=== PATIENT | female | born 1975 | race Hispanic/Latino ===

== ENCOUNTER 2019-09-21 14:42 | Outpatient (CLI) | payer OTHER, SELFPAY ==
[2019-09-21 15:30] LABS: Basophils Percent Auto 0.5 % (0.2-1.2); Eosinophils Percent Auto 0.7 % (0-4.4); Hematocrit 38.4 % (37.0-47.0); Hemoglobin 12.7 g/dL (12.0-15.0); Immature Granulocyte Absolute 0.01 K/mm3 (0.00-0.031); Immature Granulocyte Percent A 0.2 % (0-0.5); Lymphocytes Absolute Auto 1.05 K/mm3 (0.9-3.2); Lymphocytes Percent Auto 25.6 % (18.3-44.2); Mean Corpuscular HGB Conc 33.1 g/dl (32-36); Mean Corpuscular Hemoglobin 31.3 pg (26-34); Mean Corpuscular Volume 94.6 fl (80-100); Mean Platelet Volume 10.3 fl (7.4-10.4); Monocytes Absolute Auto 0.2 K/mm3 (0.1-0.6); Monocytes Percent Auto 4.9 % (2.6-8.5); Neutrophils Absolute Auto 2.8 K/mm3 (1.3-6.7); Neutrophils Percent Auto 68.1 % (45.5-73.1); Platelet Count Result 270 k/mm3 (150-375); Red Blood Count 4.06 M/mm3 (4.2-5.4); Red Cell Distribution Width 11.9 % (11.5-14.5); White Blood Count 4.1 K/mm3 (4.5-10.0)
[2019-09-26 22:11] LABS: Aspergillus Fumigatus K/UL <0.10 (<0.10); Conventional Class 0 (0)
[2019-09-27 20:05] LABS: Aspergillus fumigatus (m3) IgG 16.1 mcg/mL (<2.0)
== END 2019-09-21 14:43 | disposition home or self-care (01) ==
PROVIDERS: PCP Physician Assistant; Visit Provider Nurse Practitioner Family
DX: J45.909 Unspecified asthma, uncomplicated (principal)
CPT/HCPCS: 36415; 82785; 85025; 86001; 86003

== ENCOUNTER 2019-10-03 15:35 | Outpatient (CLI) | payer OTHER, SELFPAY ==
--- NOTE | ~2019-10-03 | CT_ITS ---
EXAMINATION: CTA chest PE protocol EXAM DATE: 10/03/2019 16:23 INDICATION: Shortness of breath on exertion. TECHNIQUE: Spiral CTA of the chest (pulmonary arteries) was performed with 100 cc Omnipaque 350 intr avenous contrast injection. Images were acquired during the pulmonary arterial phase. Coronal maxi mum intensity projection 3D-reconstructions were created by the technologist on dedicated workstation . Axial, coronal and sagittal reformatted images were reviewed. The dose-length product (DLP) for t his examination was 180.42 mGy-cm. The exposure was tailored according to patient size (auto mA exp osure control), and iterative reconstruction (ASIR) was used as additional dose reduction technique. There is no prior study for comparison. FINDINGS: Pulmonary arteries are well opacified and without intraluminal filling defects. No thora cic aortic dissection. Biapical nodular densities most likely scarring, stable. No new or suspicious pulmonary nodules. There are no pleural or pericardial effusions. Tracheobronchial tree is patent. There is no mediastinal, hilar or axillary lymphadenopathy. There is no pneumothorax. Heart no rmal in size. No evidence of coronary arterial calcification. Upper abdomen is unremarkable. The re is thoracic spondylosis without osteoblastic or osteolytic lesions identified. IMPRESSION: 1. Biapical scarring unchanged. 2. No pulmonary emboli. Reviewed, dictated and finalized at location A. TY AGRICULTURAL AGENT
== END 2019-10-03 15:36 | disposition home or self-care (01) ==
PROVIDERS: PCP Physician Assistant; Visit Provider Internal Medicine Critical Care Medicine
DX: R06.02 Shortness of breath (principal)
CPT/HCPCS: 71275; Q9967

== ENCOUNTER 2020-02-29 10:20 | Outpatient (CLI) | payer OTHER, SELFPAY ==
--- NOTE | ~2020-02-29 | MM_ITS ---
EXAMINATION: MM screening yamile BI w shira HISTORY: Screening mammogram TECHNIQUE: Craniocaudal and mediolateral oblique 3-D tomosynthesis images were obtained and synthetic 2-D images were generated. CAD analysis was submitted and interpreted. COMPARISON: 10/30/2016 BREAST PARENCHYMAL COMPOSITION: The breasts are heterogeneously dense, which may obscure small masses . FINDINGS: Scattered benign-appearing calcifications are present. There is no evidence of suspicious m ass, calcification, or architectural distortion to suggest malignancy in either breast. There has bee n no suspicious interval change. IMPRESSION: 1. No mammographic evidence of malignancy. 2. Recommend routine screening mammography in one year. BI-RADS Category 2: Benign finding(s). Reviewed, dictated and finalized at location B.
== END 2020-02-29 10:21 | disposition home or self-care (01) ==
LOC: CHSIMG 10:22
PROVIDERS: PCP Physician Assistant; Visit Provider Physician Assistant
DX: Z12.31 Encounter for screening mammogram for malignant neoplasm of breast (principal)
CPT/HCPCS: 77063; 77067

== ENCOUNTER 2020-06-22 15:07 | Outpatient (CLI) | payer OTHER, SELFPAY ==
[2020-06-24 22:23] LABS: SARS-CoV-2 RNA PCR Positive
== END 2020-06-22 15:08 | disposition home or self-care (01) ==
PROVIDERS: PCP Physician Assistant; Visit Provider Physician Assistant
DX: U07.1 COVID-19 (principal)
CPT/HCPCS: 87635; C9803; U0003

== ENCOUNTER 2021-06-13 07:52 | Outpatient (CLI) | payer OTHER, SELFPAY ==
--- NOTE | ~2021-06-13 | MM_ITS ---
EXAMINATION: MM screening yamile BI w shira HISTORY: Screening mammogram TECHNIQUE: Craniocaudal and mediolateral oblique 3-D tomosynthesis images were obtained and synthetic 2-D images were generated. CAD analysis was submitted and interpreted. COMPARISON: 02/29/2020, 10/30/2016 bilateral screening mammogram examinations BREAST PARENCHYMAL COMPOSITION: There are scattered areas of fibroglandular density. FINDINGS: There is no evidence of suspicious mass, calcification, or architectural distortion to sugg est malignancy in either breast. There has been no suspicious interval change. IMPRESSION: 1. No mammographic evidence of malignancy. 2. Recommend routine screening mammography in one year. BI-RADS Category 1: Negative Reviewed, dictated and finalized at location A. APEUTIC RECREATION SPECIALIST
== END 2021-06-13 07:53 | disposition home or self-care (01) ==
LOC: CHSIMG 07:56
PROVIDERS: PCP Physician Assistant; Visit Provider Physician Assistant
DX: Z12.31 Encounter for screening mammogram for malignant neoplasm of breast (principal)
CPT/HCPCS: 77063; 77067

== ENCOUNTER 2021-08-05 11:10 | Outpatient (CLI) | payer OTHER, SELFPAY ==
[2021-08-05 13:13] LABS: SARS-CoV-2 RNA PCR Positive (Negative)
== END 2021-08-05 11:11 | disposition home or self-care (01) ==
LOC: CHSLAB 11:12
PROVIDERS: PCP Physician Assistant; Visit Provider Physician Assistant
DX: U07.1 COVID-19 (principal)
CPT/HCPCS: C9803; U0003; U0005

== ENCOUNTER 2021-08-26 16:08 | Outpatient (CLI) | payer OTHER, SELFPAY ==
--- NOTE | ~2021-08-26 | XR_ITS ---
XR chest 2V DATE: 08/26/2021 16:29 INDICATION: Shortness of breath, cough for 3 weeks TECHNIQUE: PA and lateral views COMPARISON: 10/03/2019 CT pulmonary scan FINDINGS: Normal heart size. No hilar or mediastinal enlargement. No pulmonary infiltrate or consolid ation, pleural effusion or pulmonary vascular congestion or pneumothorax. IMPRESSION: Negative chest Reviewed, dictated and finalized at location A. F SORTER IMPRESSION: Negative chest
== END 2021-08-26 16:09 | disposition home or self-care (01) ==
LOC: CHSIMG 16:11
PROVIDERS: PCP Physician Assistant; Visit Provider Nurse Practitioner Family
DX: R06.02 Shortness of breath (principal); R05.9 Cough, unspecified; Z86.16 Personal history of COVID-19
CPT/HCPCS: 71046

== ENCOUNTER 2021-12-15 03:19 | Emergency (ER) | payer OTHER, SELFPAY ==
--- NOTE | ~2021-12-15 | XR_ITS ---
XR elbow LT 2V DATE: 12/15/2021 04:01 INDICATION: Elbow injury TECHNIQUE: AP and lateral views COMPARISON: None FINDINGS: No fracture or dislocation or joint effusion. No periosteal reaction or bone destruction. J oint spaces are preserved. IMPRESSION: Negative Reviewed, dictated and finalized at location A. IMPRESSION: Negative
--- NOTE | ~2021-12-15 | XR_ITS ---
XR shoulder LT min 2V DATE: 12/15/2021 04:02 INDICATION: Left shoulder injury, pain TECHNIQUE: 4 views COMPARISON: None FINDINGS: There is a linear nondisplaced fracture at the inferomedial aspect of the greater tuberosit y of the proximal left humerus. No other fracture or dislocation. No periosteal reaction or bone destruction. IMPRESSION: Nondisplaced linear fracture superior medial aspect of the greater tuberosity of the prox imal left humerus Reviewed, dictated and finalized at location A. IMPRESSION: Nondisplaced linear fracture superior medial aspect of the greater tuberosity of the proximal left humerus
[2021-12-15 03:20] VITALS: BP 123/79; PULSE 109; RESP 22; TEMP 36.2; O2SAT 98
--- NOTE | 2021-12-15 03:43 | ED.UPPEXIN ---
HPI - Extremity Injury (Upper) General Chief Complaint: Extremity Injury, Upper Stated Complaint: PAIN Time Seen by Provider: 12/15/21 03:43 Source: patient Mode of arrival: ambulatory Limitations: no limitations History of Present Illness HPI narrative: this is a 46-year-old female that was outside taking her dog to go to the bathroom and got tangled in his leash and fell forward into her left shoulder and elbow causing pain discomfort with decreased range of motion secondary to pain and swelling. Has some pain level that she rates about an 8/10 with currently no numbness or tingling and has a strong brisk radial pulse on the right. complaint: injury to: left, shoulder and elbow Other injuries: none Handedness: right Place: outdoors Severity: moderate Severity scale (1-10): 8 Relieving factors: immobilization and rest Exacerbating factors: movement of extremity Related Data Allergies Allergy/AdvReac Type Severity Reaction Status Date / Time mold Allergy Difficulty Verified 12/15/21 03:29 Breathing Review of Systems Review of Systems: All systems reviewed & are unremarkable except as noted in HPI and below PMFSH Past Medical History Medical History Asthma Depression History of second hand smoke exposure Lung nodules Rhinitis SOB (shortness of breath) Surgical History Surgical History History of colonoscopy Family History Family History Sibling Family history of malignant neoplasm of uterus Patient's sister is in good health Family history of primary malignant neoplasm of liver Mother Patient's mother is in good health Family history of malignant neoplasm of breast in first degree relative Family history of malignant neoplasm of ovary Other Asthma History of second hand smoke exposure Social History Social History Smoking status: Never smoker Alcohol intake: current Exam Const: General: no acute distress Orientation/consciousness: patient oriented x3 HENMT: Head: normal to inspection Eyes: Conjunctivae: conjunctivae normal Pupils: Equal, round and reactive pupils present Neck: Neck: normal visual inspection and no lymphadenopathy Chest: Chest palpation & inspection: normal inspection of the chest Resp: Effort & Inspection: normal respiratory effort Auscultation: clear to auscultation bilaterally Cardio: Rate: regular rate Rhythm: regular rhythm GI: GI Palp: Yes Soft to palpation Percussion: Yes normal to percussion Back/Spine/Pelvis: Back: no CVA tenderness Skin: General skin exam: normal color Rashes: no rashes Neuro: General: patient oriented x3 and moves all extremities Extrem: Other: Pain with swelling of the left shoulder and elbow with decreased range of motion secondary to pain. Psych: Mental Status: mental status grossly normal Affect: normal affect Course Course Emergency Course: Patient received 60mg IM Toradol and x-rays reviewed with patient. x-rays performed shows a lucency in the left humeral head concerning for a nondisplaced fracture this was reviewed with patient, patient possibly has a rotator cuff injury and recommend patient obtaining an MRI of the left shoulder. Critical Care Time Critical Care Time Critical Care Time: No Discharge Plan Discharge Clinical Impression: Fracture of shoulder Qualifiers: Encounter type: initial encounter Fracture type: closed Laterality: left Qualified Code(s): S42.92XA - Fracture of left shoulder girdle, part unspecified, initial encounter for closed fracture Rotator cuff (capsule) sprain Qualifiers: Encounter type: initial encounter Laterality: left Qualified Code(s): S43.422A - Sprain of left rotator cuff capsule, initial encounter Patient Disposition: Home, Self-Care C
[2021-12-15] MEDS: KETOROLAC (*BKC) 60 MG/2 ML VIAL IM (04:02)
--- NOTE | 2021-12-15 04:36 | PC.NURSE ---
left arm placed in sling.
[2021-12-15 05:01] VITALS: BP 123/73; PULSE 80; RESP 16; TEMP 36.2; O2SAT 99
== END 2021-12-15 05:03 | disposition home or self-care (01) ==
PROVIDERS: Emergency Provider Emergency Medicine; PCP Physician Assistant
DX: S42.92XA Fracture of left shoulder girdle, part unspecified, initial encounter for closed fracture (principal); S43.422A Sprain of left rotator cuff capsule, initial encounter; W18.39XA Other fall on same level, initial encounter
CPT/HCPCS: 73030; 73070; 96372; 99284; A4565; J1885

== ENCOUNTER 2021-12-21 07:59 | Outpatient (CLI) | payer OTHER, SELFPAY ==
--- NOTE | ~2021-12-21 | MR_ITS ---
EXAMINATION: MR shoulder LT wo con DATE: 12/21/2021 09:17 INDICATION: Left shoulder fracture and limited range of motion post fall one week prior TECHNIQUE: Magnetic resonance imaging (MRI) of the left shoulder was performed without intravenous co ntrast. Sequences included axial PD-weighted FS FSE, coronal oblique PD-weighted FS FSE, coronal obli que T2-weighted FS FSE, sagittal PD-weighted FS FSE, and sagittal T1-weighted SE. COMPARISON: Radiographs dated 12/15/2021 FINDINGS: Coracoacromial arch: The acromion undersurface is curved in morphology (type II). The coracoacromial ligament is normal. A cromioclavicular joint is normal. Rotator cuff: There is feathery muscular edema tracking along the posterior aspect of the supraspinatus muscle dalton y consistent with a low-grade muscle strain. Mild supraspinatus tendinopathy without discrete tear. T he infraspinatus, teres minor and subscapularis tendons are normal. Biceps tendon, glenoid labrum and glenohumeral cartilage: Long head of the biceps tendon is normal. There is a superior, anterior to posterior tear of the sendy oid labrum (SLAP tear) extending posteriorly from the 12:00 position to the 11:00 position. [place] ral cartilage is normal. Fluid: Physiologic amount of fluid in the glenohumeral joint and biceps tendon sheath. No loose osteochondr al bodies. Minimal increased fluid in the subacromial/subdeltoid bursa which could be due to mild bur sitis or more likely reactive fluid related to the recent trauma. Bones: Marrow edema along the nondisplaced fracture extending along the superior and middle facets of the gr eater tuberosity. Marrow signal is otherwise normal. No other fractures or pathologic marrow replacin g process. IMPRESSION: 1. Nondisplaced fracture underlying the superior and middle facets of the greater tuberosity. 2. Low-grade supraspinatus muscle strain. 3. Mild supraspinatus tendinopathy without discrete tear which could be related to either the recent trauma or more chronic tendinopathy. 4. Small SLAP tear at the superior glenoid labrum. Reviewed, dictated and finalized at location A. IMPRESSION: 1. Nondisplaced fracture underlying the superior and middle facets of the great er tuberosity. 2. Low-grade supraspinatus muscle strain. 3. Mild supraspinatus tendinopathy without discrete tear which could be related to either the recent trauma or more chronic tendinopathy. 4. Small SLAP tear at the superior glenoid labrum.
== END 2021-12-21 08:00 | disposition home or self-care (01) ==
LOC: CHSIMG 08:01
PROVIDERS: PCP Physician Assistant; Visit Provider Physician Assistant
DX: S46.012A Strain of muscle(s) and tendon(s) of the rotator cuff of left shoulder, initial encounter (principal); S42.255A Nondisplaced fracture of greater tuberosity of left humerus, initial encounter for closed fracture
CPT/HCPCS: 73221

== ENCOUNTER 2022-02-24 09:51 | Outpatient (RCR) | payer OTHER, SELFPAY ==
--- NOTE | 2022-02-24 11:02 | PTOPEVAL ---
Thank you for referring Allyn Cardoza to [facility] [place].? The patient is scheduled to be seen for therapy? 2-3x/week for 12 visits. Please review, sign, date and return this plan of care LOGAN. I agree with and certify that the following plan of care is medically necessary. Referring Physician Date Admitting Provider: Attending Provider: Hao Patricio, PA Referring Provider: *PT Outpatient Evaluation Start: 02/24/22 08:59 Freq: Status: Active Protocol: Document 02/24/22 08:59 [facility] (Rec: 02/24/22 11:00 [facility] [id number]) Therapy Assessment Status Assessment Status Assessment Status Evaluation Outpatient Past Medical History Neurological History Hx Neurological Disorders No Significant History Cardiovascular History Hx Cardiac Disorders No Significant History Respiratory History Hx Asthma Yes Gastrointestinal History Hx Gastrointestinal Disorders No Significant History Genitourinary History Hx Genitourinary Disorders No Significant History Musculoskeletal History Hx Musculoskeletal Disorders No Significant History Hematological History Hx Hematological Disorders No Significant History Endocrine History Hx Endocrine Disorders No Significant History HEENT History Hx HEENT Disorders No Significant History Integumentary History Hx Skin Disorders No Significant History Psychosocial History Hx Psychiatric Disorders No Significant History Pain History History of Any Previous or Ongoing No Significant History Instance of Pain Anesthesia History Hx Anesthesia Reactions No Significant History Evaluation Information Problem Diagnosis L shoulder fracture and rotator cuff tear Onset 12/15/2021 Subjective Information In December, patient injured her L Query Text:As Reported By Patient/ shoulder when she tripped over Family her dog and fell on her L shoulder. She had immediate pain and went to the ER. Xray showed fracture. Later she went to her MD and obtained MRI which shows additional biceps tendon partial tear and RTC partical tear. She was in a splint up until her last visit with her MD and he reports that her bone is now fully healed, therefore, she no longer has any restrictions . They discussed potential for an injection and potential surgery but would
== END 2022-03-18 13:55 | disposition home or self-care (01) ==
LOC: CHSPT 09:51
PROVIDERS: Visit Provider Physician Assistant
DX: S42.255D Nondisplaced fracture of greater tuberosity of left humerus, subsequent encounter for fracture with routine healing (principal); M75.22 Bicipital tendinitis, left shoulder; M75.52 Bursitis of left shoulder
CPT/HCPCS: 97014; 97110; 97140; 97161; G0283

== ENCOUNTER 2022-05-13 11:38 | Emergency (ER) | payer OTHER, SELFPAY ==
--- NOTE | ~2022-05-13 | XR_ITS ---
EXAMINATION: XR chest 1V portable INDICATION: Shortness of breath with cough TECHNIQUE: Portable AP chest at 1212 hours COMPARISON: 08/26/2021 FINDINGS: There is an opacity of the left lung base. No pleural effusion or pneumothorax. The cardiom ediastinal silhouette is normal. IMPRESSION: 1. Left basilar opacity which could be infectious or inflammatory. Malignancy considered less likely. Reviewed, dictated and finalized at location A. IMPRESSION: 1. Left basilar opacity which could be infectious or inflammatory. Malignancy c onsidered less likely.
[2022-05-13 11:49] VITALS: BP 112/70; PULSE 84; RESP 16; TEMP 36.1; O2SAT 98
--- NOTE | 2022-05-13 11:56 | ECG_ITS ---
Measurements Intervals [place] Rate: 74 P: 63 SC: 159 QRS: 63 QRSD: 82 T: 45 QT: 370 QTc: 412 Interpretive Statements SINUS RHYTHM NO PREVIOUS ECG AVAILABLE FOR COMPARISON Electronically Signed On 05-14-2022 19:38:44 CDT by Radha Aguilera M.D.
[2022-05-13 12:15] VITALS: PULSE 79; RESP 22; O2SAT 100
[2022-05-13 12:15] LABS: Appearance Urine Clear (Clear); Bilirubin Urine Negative (Negative); Blood Urine Negative (Negative); Glucose Urine UA Negative (Negative); Ketones Urine Negative (Negative); Leukocyte Esterase Ur Negative LEU/UL (Negative); Nitrate Urine Negative (Negative); Protein Urine Negative (Negative); Urobilinogen Urine 0.2 mg/dL (0.2-1.0)
[2022-05-13] MEDS: IPRATROPIUM 0.5 MG/ALBUTEROL SULFATE 2.5 MG AMPUL.NEB 3 ML INHALATION ×2 (12:16→12:47)
[2022-05-13 12:19] LABS: Add Urine Microscopic? NO; Color Urine Light Yellow (Yellow)
[2022-05-13 12:26] VITALS: PULSE 83; RESP 22; O2SAT 100
[2022-05-13] MEDS: methylPREDNISolone SOD SUCC 125 MG VIAL IM (12:28)
[2022-05-13 12:41] LABS: Basophils Absolute Auto 0.02 K/mm3 (0.00-0.10); Basophils Percent Auto 0.2 % (0.0-1.0); Eosinophils Absolute Auto 0.02 K/mm3 (0.02-0.50); Eosinophils Percent Auto 0.2 % (1.0-6.0); Hematocrit 34.7 % (35.0-49.0); Hemoglobin 12.1 g/dL (12.0-15.0); Immature Granulocyte Absolute 0.04 K/mm3 (0.00-0.00); Immature Granulocyte Percent A 0.4 % (0.0-0.0); Lymphocytes Absolute Auto 1.09 K/mm3 (1.10-4.50); Lymphocytes Percent Auto 10.5 % (18.0-42.0); Mean Corpuscular HGB Conc 34.9 g/dL (32.0-36.0); Mean Corpuscular Hemoglobin 32.9 pg (27.0-31.0); Mean Corpuscular Volume 94.3 fL (78.0-102.0); Monocytes Absolute Auto 0.38 K/mm3 (0.10-0.90); Monocytes Percent Auto 3.6 % (2.0-11.0); Neutrophils Absolute Auto 8.9 K/mm3 (1.7-7.2); Neutrophils Percent Auto 85.1 % (50.0-70.0); Platelet Count Result 275 K/mm3 (150-420); Red Blood Count 3.68 M/mm3 (4.20-5.40); Red Cell Distribution Width 11.8 % (11.6-14.4); White Blood Count 10.4 K/mm3 (4.8-10.8)
[2022-05-13 12:47] VITALS: PULSE 83; RESP 24; O2SAT 100
[2022-05-13 12:48] LABS: HCO3 VBG 23.1 mEq/l (24.0-30.0); PO2 VBG 29.8 mmHg (35.0-45.0); pH VBG 7.53 (7.33-7.43)
[2022-05-13 12:49] LABS: Device ROOM AIR; PCO2 VBG 28.6 mmHg (42.0-48.0)
--- NOTE | 2022-05-13 12:52 | ED.SOB ---
HPI - SOB/Dyspnea General Chief Complaint: Shortness of Breath/Dyspnea Stated Complaint: COUGH, CONGESTION Time Seen by Provider: 05/13/22 11:42 Source: patient and RN notes reviewed Mode of arrival: ambulatory Limitations: no limitations History of Present Illness MD elicited complaint: shortness of breath, cough and asthma attack Pertinent past history: asthma Onset (ago): day(s) (2) Context: recent illness Timing: constant and progressively worsening Severity: moderate Exacerbating factors: nothing Relieving factors: nothing Known history of: asthma Associated symptoms: cough, wheezing and chest congestion Treatment prior to arrival: bronchodilator Related Data Home Medications Medication Instructions Recorded Confirmed loratadine 10 mg tablet (Claritin) 10 mg PO DAILY 01/17/22 02/28/22 montelukast 10 mg tablet 10 mg PO DAILY 01/17/22 02/28/22 Allergies Allergy/AdvReac Type Severity Reaction Status Date / Time mold Allergy Difficulty Verified 02/28/22 12:56 Breathing Review of Systems Review of Systems: All systems reviewed & are unremarkable except as noted in HPI and below Constitutional: Constitutional: Reports no additional constitutional complaints Eyes: Eyes: Reports no additional eye complaints ENT: Reports system reviewed and no additional complaints, except as documented Cardiovascular: Cardiovascular: Reports no additional cardiovascular complaints Respiratory: Respiratory: Reports no additional respiratory complaints, Reports cough, Reports dyspnea and Reports wheezing Gastrointestinal: Gastrointestinal: Reports no additional gastrointestinal complaints Genitourinary: Genitourinary: Reports no additional female genitourinary complaints Musculoskeletal: Musculoskeletal: Reports no additional musculoskeletal complaints Integumentary/Breasts: Skin/Breast: Reports system reviewed and no additional complaints, except as docu Neurologic: Reports system reviewed and no additional complaints, except as documented Psychiatric: Psychiatric: Reports no additional psychiatric complaints Endocrine: Endocrine: Reports no additional endocrine complaints Hematologic/Lymphatic: Hematologic/Lymphatic: Reports no additional hematologic/lymphatic complaints Allergic/Immunologic: Allergic/Immunologic: Reports no additional allergic/immunologic complaints [facility] Past Medical History Medical History Asthma Depression History of second hand smoke exposure Lung nodules Rhinitis SOB (shortness of breath) Surgical History Surgical History History of colonoscopy Family History Family History Sibling Family history of malignant neoplasm of uterus Patient's sister is in good health Family history of primary malignant neoplasm of liver Mother Patient's mother is in good health Family history of malignant neoplasm of breast in first degree relative Family history of malignant neoplasm of ovary Asthma Father Asthma Other History of second hand smoke exposure Social History Social History Smoking status: Never smoker Second hand tobacco smoke exposure: Yes Alcohol intake: current Alcohol use details: Socially Substance use: never Exam Const: General: diaphoretic and well nourished Nutritional Appearance: well nourished Orientation/consciousness: patient oriented x3 Limitations: no limitations HENMT: Head: normal to inspection Ears: external ears normal, TM's normal bilaterally and EAC's normal Face/Nose/Sinus: Normal external nose present, Normal nares present, normal facial exam and sinuses nontender Face and sinus: normal facial exam and sinuses nontender Mouth: Yes Normal oral and palatal mucosa present and Yes moist mucous membranes Teeth and
[2022-05-13 12:58] VITALS: PULSE 79; RESP 22; O2SAT 100
[2022-05-13 13:06] LABS: Alanine Aminotransferase 16 U/L (14-59); Albumin Level 3.7 g/dL (3.4-5.0); Alkaline Phosphatase 50 U/L (46-116); Anion Gap 9 mmol/L (8-16); Aspartate Amino Transferase 10 U/L (15-37); Bilirubin,Total 0.3 mg/dL (0.00-1.00); Blood Urea Nitrogen 15 mg/dL (7-18); Carbon Dioxide 26 mmol/L (21-32); Chloride 103 mmol/L (98-108); Estimated Glomerular Filt Rate > 60; Glucose 88 mg/dL (70-99); Osmolality Calculated 285 mOsm/kg (285-295); Potassium 4.2 mmol/L (3.5-5.1); Sodium 138 mmol/L (136-145)
[2022-05-13 13:18] LABS: SARS-CoV-2 RNA PCR Negative (Negative)
[2022-05-13 13:26] LABS: NT Pro B Type Natriuretic Pept 205 pg/mL (0-125); Troponin I < 4.0 ng/L (0.00-60.4)
[2022-05-13] MEDS: cefTRIAXone 1 GM, LIDOCAINE HCL 1% LOCAL INJ 2.1 ML IM (14:15)
[2022-05-13 14:26] VITALS: BP 133/106; PULSE 86; RESP 16; TEMP 36.2; O2SAT 99
== END 2022-05-13 14:26 | disposition home or self-care (01) ==
PROVIDERS: Emergency Provider Emergency Medicine; PCP Physician Assistant
DX: J18.9 Pneumonia, unspecified organism (principal); J45.901 Unspecified asthma with (acute) exacerbation; R91.1 Solitary pulmonary nodule; F32.A Depression, unspecified; Z77.22 Contact with and (suspected) exposure to environmental tobacco smoke (acute) (chronic); Z20.822 Contact with and (suspected) exposure to COVID-19
CPT/HCPCS: 36415; 71045; 80053; 81003; 82803; 83880; 84484; 85025; 93005; 94640; 96372; 99284; C9803; J0696; J2930; U0003; U0005

== ENCOUNTER 2022-06-16 14:19 | Outpatient (CLI) | payer OTHER, SELFPAY ==
--- NOTE | ~2022-06-16 | MM_ITS ---
EXAMINATION: MM screening yamile BI w shira HISTORY: Screening TECHNIQUE: Craniocaudal and mediolateral oblique 3-D tomosynthesis images were obtained and synthetic 2-D images were generated. CAD analysis was submitted and interpreted. COMPARISON: No prior mammogram is available for comparison at this institution. BREAST PARENCHYMAL COMPOSITION: The breasts are heterogeneously dense, which may obscure small masses FINDINGS: There is no evidence of suspicious mass, calcification, or architectural distortion to sugg est malignancy in either breast. There has been no suspicious interval change. IMPRESSION: 1. No mammographic evidence of malignancy. 2. Recommend routine screening mammography in one year. BI-RADS Category 1: Negative Reviewed, dictated and finalized at location A. ERY OPERATOR
== END 2022-06-16 14:20 | disposition home or self-care (01) ==
LOC: CHSIMG 14:20
PROVIDERS: PCP Physician Assistant; Visit Provider Physician Assistant
DX: Z12.31 Encounter for screening mammogram for malignant neoplasm of breast (principal)
CPT/HCPCS: 77063; 77067

== ENCOUNTER 2022-10-13 15:29 | Outpatient (CLI) | payer OTHER, SELFPAY ==
--- NOTE | ~2022-10-13 | CT_ITS ---
CT Scan of the Chest without Contrast: Clinical Indication: Groundglass pulmonary nodule Technique: Contiguous sections were acquired throughout the chest without intravenous contrast. Dose reduction technique was used on this scan by utilizing automated exposure control and iterative recon struction technique. The dose-length product (DLP) was 61.39 mGy-cm. COMPARISON: 10/03/2019 Findings: There is no evidence of any significant mediastinal, hilar or axillary lymphadenopathy. The mediastin al soft tissues appear normal. There is no evidence of pleural or pericardial effusion. Biapical scarring noted 5 mm groundglass nodule noted in the right middle lobe (axial image 70).. Images through the upper abdomen reveal no abnormalities. Impression: Stable 5 mm groundglass pulmonary nodule in the right middle lobe. Stable somewhat nodular biapical scarring. Reviewed, dictated and finalized at [facility]. Impression: Stable 5 mm groundglass pulmonary nodule in the right middle lobe. Stable somewhat nodular biapical scarring.
== END 2022-10-13 15:30 | disposition home or self-care (01) ==
LOC: CHSIMG 15:30
PROVIDERS: PCP Physician Assistant; Visit Provider Nurse Practitioner Family
DX: R91.8 Other nonspecific abnormal finding of lung field (principal); R91.1 Solitary pulmonary nodule
CPT/HCPCS: 71250

== ENCOUNTER 2022-12-31 06:15 | Emergency (ER) | payer OTHER, SELFPAY ==
[2022-12-31] VITALS (52 sets, daily range): BP systolic 77–118; BP diastolic 56–78; PULSE 56–72; RESP 8–21; TEMP 36.6–36.9; O2SAT 93–100
--- NOTE | ~2022-12-31 | XR_ITS ---
EXAMINATION: XR chest 1V portable DATE: 12/31/2022 06:42 INDICATION: Chest pain radiating down the left arm. TECHNIQUE: A single frontal view of the chest was obtained. COMPARISON: Chest single view 05/13/2022 FINDINGS: The chest demonstrates clear lungs without pneumonia, pleural effusion, or pneumothorax. Th e heart size is normal. IMPRESSION: 1. No acute cardiopulmonary disease. Reviewed, dictated and finalized at location A.
--- NOTE | 2022-12-31 06:22 | ECG_ITS ---
Measurements Intervals [place] Rate: 62 P: 61 NH: 123 QRS: 84 QRSD: 89 T: 78 QT: 427 QTc: 436 Interpretive Statements SINUS RHYTHM MINIMAL Q WAVES- INFERIOR LEADS BORDERLINE ECG COMPARED TO ECG 05/13/2022 12:12:47 NO SIGNIFICANT CHANGES Electronically Signed On 12-31-2022 8:27:50 CDT by Isacc Li D.O.
--- NOTE | 2022-12-31 06:24 | ED.GENADULT ---
HPI - General Adult General Chief complaint: Chest Pain <Horace Kapoor MD - Last Filed: 01/07/23 07:25> Stated complaint: Chest Pain <Horace Kapoor MD - Last Filed: 01/07/23 07:25> Time Seen by Provider: 12/31/22 06:24 <Horace Kapoor MD - Last Filed: 01/07/23 07:25> History of Present Illness HPI narrative: The patient is a 47-year-old woman with history of asthma depression and GERD. She has never smoked. Prior hysterectomy. No previous episodes of chest discomfort At 5:20 a.m., the patient started to experience chest pressure and heaviness in the substernal region radiating to the shoulder blades associated with numbness and heaviness in the left arm as well as diaphoresis and nausea but no vomiting. The chest discomfort is described as constant. Her symptoms have decreased , but are still present. No abdominal pain. No cough. No dyspnea. No wheezing. No other complaints. <Horace Kapoor MD - Last Filed: 01/07/23 07:25> Related Data Allergies/adverse reactions: Allergies Allergy/AdvReac Type Severity Reaction Status Date / Time mold Allergy Severe Difficulty Verified 12/31/22 18:52 Breathing poison shawna extract Allergy Intermediate Rash Verified 12/31/22 18:52 <Horace Kapoor MD - Last Filed: 01/07/23 07:25> Review of Systems Review of Systems: All systems reviewed & are unremarkable except as noted in HPI and below <Horace Kapoor MD - Last Filed: 01/07/23 07:25> Constitutional: Constitutional: Denies chills, Reports excessive sweating, Denies fatigue, Denies fever(s), Denies headache(s) and Denies weakness <Horace Kapoor MD - Last Filed: 01/07/23 07:25> Eyes: Eyes: Denies change in vision and Denies photophobia <Horace Kapoor MD - Last Filed: 01/07/23 07:25> ENT: Denies dysphagia, Denies dizziness, Denies headache(s), Denies lip swelling, Denies nasal congestion, Denies sore throat and Denies tongue swelling <Horace Kapoor MD - Last Filed: 01/07/23 07:25> Cardiovascular: Cardiovascular: Reports chest pain, Denies syncope, Denies rapid heart rate and Denies dyspnea <Horace Kapoor MD - Last Filed: 01/07/23 07:25> Respiratory: Respiratory: Denies cough, Denies dyspnea and Denies wheezing <Horace Kapoor MD - Last Filed: 01/07/23 07:25> Gastrointestinal: Gastrointestinal: Denies abdominal pain, Denies constipation, Denies dysphagia, Denies diarrhea, Reports nausea and Denies vomiting <Horace Kapoor MD - Last Filed: 01/07/23 07:25> Genitourinary: Genitourinary: Denies hematuria, Denies urinary frequency, Denies dysuria and Denies urinary urgency <Horace Kapoor MD - Last Filed: 01/07/23 07:25> Musculoskeletal: Musculoskeletal: Denies back pain, Denies myalgias, Denies arthralgias, Denies joint swelling and Denies numbness <Horace Kapoor MD - Last Filed: 01/07/23 07:25> Integumentary/Breasts: Skin/Breast: Denies pruritus, Denies erythema and Denies rash <Horace Kapoor MD - Last Filed: 01/07/23 07:25> Neurologic: Denies confusion, Denies dizziness, Denies syncope, Denies headache(s), Denies focal weakness, Denies numbness and Denies weakness <Horace Kapoor MD - Last Filed: 01/07/23 07:25> Psychiatric: Psychiatric: Denies anxiety and Denies confusion <Horace Kapoor MD - Last Filed: 01/07/23 07:25> Endocrine: Endocrine: Denies excessive sweating and Denies fatigue <Horace Kapoor MD - Last Filed: 01/07/23 07:25> Hematologic/Lymphatic: Hematologic/Lymphatic: Denies easy bleeding and Denies easy bruising <Horace Kapoor MD - Last Filed: 01/07/23 07:25> Allergic/Immunologic: Allergic/Immunologic: Denies lip swelling, Denies tongue swelling and Denies wheezing <Horace Kapoor MD - Last Filed: 01/07/23 07:25> [facility] Past Medical History Medical History: Medical History Asthma Depression Gastroesophageal reflux disease Lung nodules Uterine cancer At the age of 28, status post total h
[2022-12-31] MEDS: SODIUM CHLORIDE 0.9% IV 1,000 ML 999 ML IV CONT (06:36)
[2022-12-31] MEDS: ASPIRIN 81 MG CHEWABLE TABLET 324 MG PO (06:36)
[2022-12-31 06:43] LABS: Basophils Absolute Auto 0.02 K/mm3 (0.00-0.10); Basophils Percent Auto 0.5 % (0.0-1.0); Eosinophils Absolute Auto 0.02 K/mm3 (0.02-0.50); Eosinophils Percent Auto 0.5 % (1.0-6.0); Hematocrit 37.8 % (35.0-49.0); Hemoglobin 12.7 g/dL (12.0-15.0); Immature Granulocyte Absolute 0.01 K/mm3 (0.00-0.00); Immature Granulocyte Percent A 0.3 % (0.0-0.0); Lymphocytes Absolute Auto 0.92 K/mm3 (1.10-4.50); Lymphocytes Percent Auto 23.1 % (18.0-42.0); Mean Corpuscular HGB Conc 33.6 g/dL (32.0-36.0); Mean Corpuscular Hemoglobin 31.9 pg (27.0-31.0); Mean Platelet Volume 10.3 fl (9.2-11.8); Monocytes Absolute Auto 0.27 K/mm3 (0.10-0.90); Monocytes Percent Auto 6.8 % (2.0-11.0); Neutrophils Absolute Auto 2.8 K/mm3 (1.7-7.2); Neutrophils Percent Auto 68.8 % (50.0-70.0); Platelet Count Result 249 K/mm3 (150-420); Red Blood Count 3.98 M/mm3 (4.20-5.40); Red Cell Distribution Width 12.2 % (11.6-14.4)
[2022-12-31 06:57] LABS: D Dimer 0.19 mg/L (0.19-0.50)
--- NOTE | 2022-12-31 07:01 | PC.NURSE ---
patient report given to MART Ca.
[2022-12-31 07:10] LABS: Alanine Aminotransferase 21 U/L (14-59); Albumin Level 3.8 g/dL (3.4-5.0); Alkaline Phosphatase 48 U/L (46-116); Anion Gap 9 mmol/L (8-16); Aspartate Amino Transferase 11 U/L (15-37); Bilirubin,Total 0.5 mg/dL (0.00-1.00); Blood Urea Nitrogen 15 mg/dL (7-18); Calcium 8.5 mg/dL (8.5-10.1); Carbon Dioxide 26 mmol/L (21-32); Chloride 105 mmol/L (98-108); Estimated CRCL calculation 85 ml/min; Estimated Glomerular Filt Rate > 60; Glucose 102 mg/dL (70-99); NT Pro B Type Natriuretic Pept 43 pg/mL (0-125); Osmolality Calculated 290 mOsm/kg (285-295); Potassium 3.9 mmol/L (3.5-5.1); Sodium 140 mmol/L (136-145); Total Protein 6.9 g/dL (6.4-8.2); Troponin I 11.9 ng/L (0.00-60.4)
--- NOTE | 2022-12-31 07:40 | PC.NURSE ---
0700 report from michelle leach. no questions or concerns. introduced self to pt. pt is feeling much better and is pain free at this time. iv fluids continue to infuse without difficulty. no needs or concerns at this time.
[2022-12-31 09:12] LABS: Troponin I 97.1 ng/L (0.00-60.4)
--- NOTE | 2022-12-31 10:07 | PC.NURSE ---
dr jenkins in with pt discussing plan of care. continue to await call from addie for cardiac consult
[2022-12-31 10:42] LABS: INR 0.9; Partial Thromboplastin Time 26.6 SEC (23.90-30.70); Prothrombin Time 10.2 Seconds (9.50-12.10)
[2022-12-31] MEDS: HEPARIN SODIUM 5,000 UNITS/ML VIAL 3500 UNITS IV PUSH (10:42)
[2022-12-31] MEDS: HEPARIN SOD/D5W 100 UNITS/ML 25,000 UNITS/250 ML BAG 7 UNITS IV CONT (11:09)
--- NOTE | 2022-12-31 11:12 | PC.NURSE ---
pt remains pain free, up and ambulated to bathroom. no other needs at this time. awaiting bed assignment.
--- NOTE | 2022-12-31 11:45 | PC.NURSE ---
meal provided. pt ate sandwich, chips and soda. remains pain free.
[2022-12-31] MEDS: ACETAMINOPHEN 500 MG TABLET 1000 MG PO (13:20)
--- NOTE | 2022-12-31 14:11 | PC.NURSE ---
due to multiple calls for 911, extended delay for transport to [facility]. pt updated and shivani real rn notified.
== END 2022-12-31 15:03 | disposition short-term general hospital (02) ==
PROVIDERS: Emergency Medicine; Emergency Provider Emergency Medicine; PCP Physician Assistant
DX: R07.9 Chest pain, unspecified (principal); R77.8 Other specified abnormalities of plasma proteins; J45.909 Unspecified asthma, uncomplicated; K21.9 Gastro-esophageal reflux disease without esophagitis; F32.A Depression, unspecified; Z79.51 Long term (current) use of inhaled steroids
CPT/HCPCS: 36415; 71045; 80053; 83880; 84484; 85025; 85380; 85610; 85730; 93005; 96361; 96365; 96366; 99285; A9270; J1644; J7030

== ENCOUNTER 2022-12-31 18:03 | Observation (INO) | payer OTHER, SELFPAY ==
--- NOTE | ~2022-12-31 | CT_ITS ---
EXAMINATION: CT brain wo con DATE: 12/31/2022 22:25 INDICATION: left side weakness . TECHNIQUE: Computed tomography (CT) of the head was performed without intravenous contrast. The mA wa s adjusted according to patient size. Iterative reconstruction technique was employed. The dose-lengt h product was 681.00 mGy-cm. COMPARISON: None. FINDINGS: No acute intracranial hemorrhage or extra-axial fluid collection. No hydrocephalus, mass, or herniation. No acute ischemic infarct. Unremarkable dural venous sinus attenuation. No acute osseous abnormality. The aerated spaces are clear. IMPRESSION: No acute intracranial process. Reviewed, dictated and finalized at location K.
--- NOTE | ~2022-12-31 | CT_ITS ---
Clinical Indication: Chest pain CT Scan of the Chest with Contrast: Technique: Contiguous sections were acquired throughout the chest after intravenous administration of 100 cc of Omnipaque 350. Dose reduction technique was used on this scan by utilizing automated expos ure control and iterative reconstruction technique. The dose-length product (DLP) was 374.29 mGy-cm. Findings: There is no evidence of any significant mediastinal, hilar or axillary lymphadenopathy. There is no f illing defect in the pulmonary arterial tree to suggest pulmonary embolus. There is no evidence of ao rtic dissection or aneurysm. There is no evidence of pleural or pericardial effusion. The lungs are clear, aside from minimal biapical scarring. Images through the upper abdomen reveal no abnormalities. Impression: No evidence of pulmonary embolus, aortic dissection, or aortic aneurysm. Minimal biapical scarring, otherwise clear lungs. Reviewed, dictated and finalized at [facility]. Impression: No evidence of pulmonary embolus, aortic dissection, or aortic aneurysm. Minimal biapical scarring, otherwise clear lungs.
--- NOTE | 2022-12-31 15:46 | PC.NURSE ---
This patient, Allyn Cardoza, was admitted to IMU Room 211-01. Patient/family oriented to hospital policies and general routines including ID bracelet, bed and alarms, visiting hours, pain management, procedures, bathroom and other care routines, personal items, smoking policy, room service/diet, and visiting hours. Information on how to activate the Rapid Response Team has been discussed. Patient/Family are encouraged to report perceived risks to care and to ask questions if they do not understand what they are told or what they should do.
[2022-12-31 16:00] VITALS: BP 117/69; PULSE 60; PULSE 64; RESP 18; TEMP 36.8; O2SAT 100
--- NOTE | 2022-12-31 16:29 | ECG_ITS ---
Measurements Intervals [place] Rate: 58 P: 69 MD: 174 QRS: 60 QRSD: 84 T: 51 QT: 443 QTc: 436 Interpretive Statements SINUS BRADYCARDIA POSSIBLE LEFT ATRIAL ENLARGEMENT INCOMPLETE RIGHT BUNDLE BRANCH BLOCK BORDERLINE ECG COMPARED TO ECG 12/31/2022 06:29:27 SINUS BRADYCARDIA NOW PRESENT Electronically Signed On 12-31-2022 18:06:06 CDT by Isacc Li D.O.
[2022-12-31 17:26] VITALS: BMI 23.3
[2022-12-31 17:42] LABS: Basophils Percent Auto 0.4 % (0.2-1.2); Eosinophils Percent Auto 0.6 % (0-4.4); Hemoglobin 12.2 g/dL (12.0-15.0); INR 1.1; Immature Granulocyte Absolute 0.02 K/mm3 (0.00-0.031); Immature Granulocyte Percent A 0.4 % (0-0.5); Lymphocytes Absolute Auto 1.08 K/mm3 (0.9-3.2); Lymphocytes Percent Auto 20.4 % (18.3-44.2); Mean Corpuscular Hemoglobin 31.7 pg (26-34); Mean Corpuscular Volume 96.1 fl (80-100); Mean Platelet Volume 10.5 fl (7.4-10.4); Monocytes Absolute Auto 0.4 K/mm3 (0.1-0.6); Monocytes Percent Auto 7.6 % (2.6-8.5); Neutrophils Absolute Auto 3.7 K/mm3 (1.3-6.7); Neutrophils Percent Auto 70.6 % (45.5-73.1); Platelet Count Result 259 k/mm3 (150-375); Prothrombin Time 14.2 Seconds (11.1-14.7); Red Blood Count 3.85 M/mm3 (4.2-5.4); Red Cell Distribution Width 12.5 % (11.5-14.5); White Blood Count 5.3 K/mm3 (4.5-10.0)
[2022-12-31 17:43] LABS: Partial Thromboplastin Time 43.2 SECONDS (22.3-36.8)
[2022-12-31 17:56] LABS: Troponin I 0.119 ng/mL (0.000-0.034)
[2022-12-31 18:00] VITALS: PULSE 65
[2022-12-31] MEDS: HEPARIN SOD/D5W 100 UNITS/ML 25,000 UNITS/250 ML BAG 9 UNITS IV CONT (18:55)
[2022-12-31] MEDS: HEPARIN SODIUM 5,000 UNITS/ML VIAL 4000 UNITS IV PUSH (18:58)
[2022-12-31 20:00] VITALS: BP 126/44; PULSE 64; PULSE 66; PULSE 74; RESP 20; TEMP 36.6; O2SAT 100; O2SAT 98
[2022-12-31 20:36] LABS: Troponin I 0.143 ng/mL (0.000-0.034)
[2022-12-31 22:00] VITALS: PULSE 62
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
[2022-12-31 23:30] VITALS: BP 110/59; PULSE 64; RESP 20; TEMP 36.6; O2SAT 98
[2022-12-31 23:54] LABS: Cholesterol 162 mg/dL (0-200); HDL Direct 69 mg/dL; Triglycerides 133 mg/dL (<150)
[2023-01-01] VITALS (31 sets, daily range): BP systolic 91–122; BP diastolic 45–79; PULSE 57–70; RESP 12–23; TEMP 36.1–36.9; O2SAT 98–100
--- NOTE | 2023-01-01 | ECHO_ITS ---
Patient Info Name: Allyn Cardoza Age: 47 years : 1975 Gender: Female Ht: 64 in Wt: 135 lbs BSA: 1.67 m2 BP: 110 / 55 mmHg Heart Rhythm: Sinus Rhythm Technical Quality: Fair Exam Date: 01/01/2023 2:59 PM Exam Location: [facility] Patient Status: Inpatient Admit Date: 12/31/2022 Staff Ordering Physician: Gale Bettencourt MD (addie/zulma) [employer] Head: Valeriano Dobbs RDCS Attending Provider: Herberth Madden MD Referring Physician: Sg FLOOD; Exam Type: CA echo doppler color flow Study Info Indications - NSTMI Complete two-dimensional, color flow and Doppler transthoracic echocardiogram is performed. Summary 1. Complete two-dimensional, color flow and Doppler transthoracic echocardiogram is performed. 2. Left ventricular chamber dimension is normal. 3. Left ventricular systolic function is normal, estimated at 65-70%. 4. The left ventricular diastolic function is grade I diastolic dysfunction. 5. Right ventricular systolic function is normal. 6. There is trace mitral valve regurgitation. 7. There is trace tricuspid valve regurgitation. Left Ventricle Left ventricular chamber dimension is normal. Left ventricular systolic function is normal, estimated at 65-70%. There is no increased left ventricular wall thickness. The left ventricular diastolic function is grade I diastolic dysfunction. Right Ventricle Right ventricular chamber dimension is normal. Right ventricular systolic function is normal. Left Atria Left atrial chamber dimension is normal. Right Atria Right atrial chamber dimension is normal. Atrial Septum Intact interatrial septum visualized by color flow imaging. Aortic Valve The aortic valve is not well visualized. There is no aortic valve stenosis. There is no aortic valve regurgitation. Pulmonic Valve The pulmonic valve is not well visualized. Mitral Valve There is trace mitral valve regurgitation. Tricuspid Valve There is trace tricuspid valve regurgitation. Pericardium/Pleural There is no pericardial effusion. Inferior Vena Cava Dilated inferior vena cava with >50% collapse upon inspiration consistent with elevated right atrial pressure, 8 mmHg. Aorta The aortic root size at the sinus of Valsalva is normal. Left Ventricular Outflow Tract Name Value Normal LVOT 2D LVOT Diameter 2.0 cm LVOT Doppler LVOT Peak Gradient 3 mmHg LVOT Mean Gradient 1 mmHg LVOT VTI 22 cm LVOT VTI/AV VTI Ratio 0.8 LVOT Stroke Volume 66 ml LVOT CO 3.8 l/min LVOT CI 2.3 l/min/m2 Mitral Valve Name Value Normal MV Doppler MV Decel Gove 374 cm/s2 MV PHT 57 ms MV Area (PHT) 3.9 cm2 4.0-5.0 MV Moralez
[2023-01-01 00:05] LABS: LDL Cholesterol Direct 69 mg/dL
[2023-01-01 00:09] LABS: Troponin I 0.159 ng/mL (0.000-0.034)
[2023-01-01 00:39] LABS: Partial Thromboplastin Time 135.1 SECONDS (22.3-36.8)
[2023-01-01] MEDS: polyethylene glycoL 3350 17 GM POWD.PACK PO ×2 (00:42→15:57)
[2023-01-01] MEDS: PANTOPRAZOLE 40 MG TABLET PO ×3 (00:43→21:23)
[2023-01-01] MEDS: ACETAMINOPHEN 325 MG TABLET 650 MG PO ×4 (04:49→21:35)
[2023-01-01 04:51] LABS: Basophils Percent Auto 0.2 % (0.2-1.2); Eosinophils Percent Auto 0.9 % (0-4.4); Hematocrit 36.2 % (37.0-47.0); Hemoglobin 12.4 g/dL (12.0-15.0); Immature Granulocyte Absolute 0.01 K/mm3 (0.00-0.031); Immature Granulocyte Percent A 0.2 % (0-0.5); Lymphocytes Absolute Auto 1.31 K/mm3 (0.9-3.2); Mean Corpuscular HGB Conc 34.3 g/dl (32-36); Mean Corpuscular Hemoglobin 32.5 pg (26-34); Mean Corpuscular Volume 94.8 fl (80-100); Monocytes Absolute Auto 0.3 K/mm3 (0.1-0.6); Monocytes Percent Auto 6.4 % (2.6-8.5); Neutrophils Absolute Auto 2.7 K/mm3 (1.3-6.7); Neutrophils Percent Auto 62.3 % (45.5-73.1); Platelet Count Result 244 k/mm3 (150-375); Red Blood Count 3.82 M/mm3 (4.2-5.4); Red Cell Distribution Width 12.5 % (11.5-14.5); White Blood Count 4.4 K/mm3 (4.5-10.0)
[2023-01-01 05:07] LABS: Alanine Aminotransferase 23 U/L (6-35); Alkaline Phosphatase 43 U/L (38-126); Anion Gap 6 mmol/L (8-16); Aspartate Amino Transferase 24 U/L (14-36); Bilirubin,Total 0.5 mg/dL (0.2-1.3); Blood Urea Nitrogen 10 mg/dL (7-17); Calcium 8.4 mg/dL (8.4-10.2); Carbon Dioxide 25 mmol/L (22-30); Chloride 106 mmol/L (98-107); Cholesterol 165 mg/dL (0-200); Estimated CRCL calculation 98 ml/min; Estimated Glomerular Filt Rate > 60; Glucose 93 mg/dL (65-110); HDL Direct 66 mg/dL; Lipase 77 U/L (23-300); Magnesium 2.1 mg/dL (1.6-2.3); Potassium 4.1 mmol/L (3.4-5.0); Sodium 137 mmol/L (137-145); Triglycerides 112 mg/dL (<150)
[2023-01-01 05:18] LABS: LDL Cholesterol Direct 74 mg/dL
[2023-01-01] MEDS: UMECLIDINIUM BROMIDE 62.5 MCG ELLIPTA 1 PUFF INHALATION (08:18)
[2023-01-01] MEDS: FLUTICASONE/SALMETEROL 115-21 MCG INHALER 1 PUFF 2 PUFF INHALATION ×2 (08:19→20:09)
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
[2023-01-01] MEDS: HEPARIN SODIUM 5,000 UNITS/ML VIAL 4000 UNITS IV PUSH (09:38)
[2023-01-01] MEDS: ASPIRIN 325 MG ENTERIC TABLET PO (09:38)
[2023-01-01] MEDS: CLOPIDOGREL BISULFATE 300 MG TABLET 600 MG PO (09:38)
[2023-01-01] MEDS: ATORVASTATIN 40 MG TABLET 80 MG PO (09:38)
--- NOTE | 2023-01-01 11:34 | WPDCARDPROC ---
Cardiac Cath Procedure Note Date of procedure:: 01/01/23 Performing physician:: CATHETERIZATION LABORATORY REPORT Procedure Date: 01/01/2023 Newspaper Subscription Solicitor: Gale Bettencourt M.D., [facility]? Referring Physician: Gale Bettencourt M.D. ? Anesthesia: Versed and Fentanyl were ordered and given in my presence at 10:31, procedure ended at 11:26. Supervision of nurse monitored moderate sedation with Versed and Fentanyl was provided for 55 minutes. Total of Versed 1mg and Fentanyl 25mcg were administered by the Engineering Technical Analyst RN Nahed Mojica. Pre-op Diagnosis: NSTEMI Post-op Diagnosis: 1. Non-obstructive coronary arteries 2. Left ventricular end-diastolic pressure of 15mmHg 3. Preserved left ventricular ejection fraction Procedure(s): 1. Moderate sedation 2. Ultrasound-guided access of the right common femoral artery 3. Coronary angiography 4. Left heart cath Access Site: Right common femoral artery Brief History and Clinical Indications: Patient is a 47 year old female who is referred for cardiac catheterization for NSTEMI. All risks, benefits and alternatives to left heart catheterization with or without percutaneous coronary intervention was discussed at length with the patient. Risk of complications including but not limited to bleeding, infection, arrhythmia, stroke, worsening kidney function, blood loss, groin hematoma, limb loss, emergency coronary artery bypass grafting, and even were discussed with the patient and all questions were answered. The patient understood and wished to proceed. Time out called, patient name, date of , medical record number, allergies, procedure performed, identify Newspaper Subscription Solicitor, patient and staff member concurred with accurate data, procedure carried on. Findings: LEFT HEART CATHETERIZATION FINDINGS: 1. Left main: The left main coronary artery is widely patent without any significant obstructive disease. The left main bifurcates into the LAD and LCX. 2. Left anterior descending: The LAD and the diagonal branches have mild luminal irregularities without any significant obstructive angiographic disease. 3. Left circumflex: The left circumflex artery has mild luminal irregularities without any significant obstructive angiographic disease. The OM vessel has mild 20-30% disease in its mid portion. 4. Right coronary artery: The RCA has mild luminal irregularities without any significant obstructive angiographic disease. The RCA is the dominant vessel. 5. Left ventricle: A. End-diastolic pressure 15mmHg. B. LV gram: Preserved LVEF. No wall motion abnormalities. C. No significant gradient across aortic valve on catheter pullback. Description of Procedure: Informed consent signed and placed in the chart. Patient transferred to tailings dam laborer room. Prepped and draped in usual sterile fashion. 2% lidocaine in right groin area. Micropuncture needle used to access right common femoral artery with Seldinger technique under fluoroscopic and ultrasound guidance. J wire advanced, micropuncture cannula placed. Right iliofemoral angiogram performed, initial angiogram showed a high stick, therefore, cannula removed and manual pressure was applied for several minutes. Micropuncture needle used again to access right common femoral artery under ultrasound guidance. J wire advanced, micropuncture cannula placed. Right iliofemoral angiogram performed, access confirmed. The second right iliofemoral angiogram showed what appeared to be a small perforation from a very small branch. Micropuncture cannula exchanged for 6-FR sheath. 5F FL 4 diagnostic catheter engaged Left Main Coronary Artery. Unable to engage the RCA with a 5F FR 4 diagnostic catheter. 5F WRP diagnostic catheter engaged Right Coronary Artery. Multiple orthogonal angiogram obtained and reviewed 5F Pigtail diagnostic catheter crossed aortic valve to obtain LVEDP, LV angiogram obtained. At the end of the case, repeat right iliofemoral angiogram was obtaine
[2023-01-01] MEDS: fentaNYL CITRATE INJ (*CRX) 100 MCG/2 ML VIAL 25 MCG IV PUSH (12:36)
[2023-01-01] MEDS: SODIUM CHLORIDE 0.9% IV 1,000 ML 125 ML IV CONT (12:50)
[2023-01-01] MEDS: ONDANSETRON INJ 4 MG/2 ML VIAL IV PUSH (12:55)
--- NOTE | 2023-01-01 14:08 | PM.IMPN ---
Progress Note: A&P Assessment and Plan (1) Chest pain: Code(s): R07.9 - Chest pain, unspecified Status: Acute (2) Elevated troponin: Code(s): R77.8 - Other specified abnormalities of plasma proteins Status: Acute (3) Left-sided weakness: Code(s): R53.1 - Weakness Status: Acute (4) Gastroesophageal reflux disease: Code(s): K21.9 - Gastro-esophageal reflux disease without esophagitis Status: Acute (5) Asthma: Qualifiers: Asthma severity: unspecified severity Asthma persistence: unspecified Asthma complication type: unspecified Qualified Code(s): J45.909 - Unspecified asthma, uncomplicated Code(s): J45.909 - Unspecified asthma, uncomplicated Status: Acute Plan The patient presented to the emergency department at the outside facility for evaluation of sudden onset of chest pain radiating through to the back and left arm left upper extremity weakness she had a history of fracture superior medial facet of greater tuberosity December 2021. There was low-grade supraspinatus muscle strain mild supraspinatus tendinopathy without discrete tear small SLAP tear at the superior glenoid labrum tear. Suspect rotator cough related pain probably radiated pain on her chest as well given all.. She also has left-sided neck pain cervical to evaluate this area elevated troponin cath negative. cardiology on board. chest pain: CTA negative. DVT proph: iv heparin Subjective Date/time seen: 01/01/23 14:08 Interval history: discussed with the horse racing manager cap was done earlier today. Mild troponin elevation noted on admission. CTA was negative for PE aortic dissection or aneurysm. Head CT was negative Review of Systems Review of Systems: All systems reviewed & are unremarkable except as noted in HPI and below Exam Narrative: General: Well-developed female in the semi-Greenwood position in bed in no acute distress. HEENT: PERRL, EOMI. Sclera anicteric. Oral mucosa moist. Neck: Supple. No JVD or bruits. Respiratory: Lungs are clear to auscultation bilaterally. Cardiovascular: Regular rate and rhythm with S1-S2. Gastrointestinal: Abdomen is soft, nontender, and nondistended with positive bowel sounds. Skin: Warm and dry. No rash or lesions on limited exam. Extremities: No cyanosis, clubbing, or edema. Radial and pedal pulses intact. No palpable knots or cords. No Left shoulder restricted range of motion tender to palpation in upper arm Neurological: Alert and oriented x4. Cranial nerves 2-12 are grossly intact. Speech is clear. No facial asymmetry. Psychiatric: Pleasant and cooperative with normal mood and affect. Judgment and insight intact. Objective Data Vital Signs Vital Signs: Vital Signs - 24 hr 12/31/22 16:00 12/31/22 16:00 12/31/22 16:00 Temperature 98.2 F Pulse Rate 64 60 Respiratory Rate 18 Blood Pressure 117/69 Pulse Oximetry 100 Oxygen Delivery Room Air 12/31/22 18:00 12/31/22 20:00 12/31/22 23:30 Temperature 97.8 F 97.8 F Pulse Rate 65 66 64 Respiratory Rate 20 20 Blood Pressure 126/44 L 110/59 L Pulse Oximetry 100 98 Oxygen Delivery 12/31/22 20:00 12/31/22 20:00 12/31/22 22:00 Temperature Pulse Rate 74 64 62 Respiratory Rate 20 Blood Pressure Pulse Oximetry 98 Oxygen Delivery Room Air 01/01/23 00:00 01/01/23 02:00 01/01/23 04:00 Temperature Pulse Rate 65 Respiratory Rate Blood Pressure Pulse Oximetry Oxygen Delivery Room Air Room Air 01/01/23 04:00 01/01/23 04:00 01/01/23 06:00 Temperature 97.6 F Pulse Rate 60 70 67 Respiratory Rate 20 Blood Pressure 110/50 L Pulse Oximetry 100 Oxygen Delivery 01/01/23 00:00 01/01/23 08:00 01/01/23 08:00 Temperature 97.9 F Pulse Rate 61 61 66 Respiratory Rate 18 Blood Pressure 110/55 L Pulse Oximetry 100 Oxygen Delivery 01/01/23 08:00 01/01/23 11:45 01/01/23 12:00 Temperature 97.
[2023-01-01 14:16] LABS: Activated Clotting Time 155 SEC (74-137)
--- NOTE | 2023-01-01 15:09 | PC.NURSE ---
Patient returned to room with catheter lab staff. Dressing to right groin dry and intact, right pedal pulse +2. Patient oriented x4, no complaints of chest pain, shortness of breath, nausea. Family at bedside. Will continue to monitor closely.
[2023-01-01] MEDS: MONTELUKAST SODIUM 10 MG TABLET PO (15:59)
[2023-01-02] VITALS (13 sets, daily range): BP systolic 92–122; BP diastolic 35–74; PULSE 62–79; RESP 16–18; TEMP 36.5–36.8; O2SAT 100
[2023-01-02] MEDS: FLUTICASONE/SALMETEROL 115-21 MCG INHALER 1 PUFF 2 PUFF INHALATION (07:51)
[2023-01-02] MEDS: UMECLIDINIUM BROMIDE 62.5 MCG ELLIPTA 1 PUFF INHALATION (07:51)
[2023-01-02] MEDS: polyethylene glycoL 3350 17 GM POWD.PACK PO (08:25)
[2023-01-02] MEDS: ASPIRIN 81 MG ENTERIC TABLET PO (08:25)
[2023-01-02] MEDS: ATORVASTATIN 40 MG TABLET 80 MG PO (08:26)
[2023-01-02] MEDS: PANTOPRAZOLE 40 MG TABLET PO (08:26)
[2023-01-02] MEDS: MONTELUKAST SODIUM 10 MG TABLET PO (08:45)
--- NOTE | 2023-01-02 10:37 | PM.PNCARD ---
Progress Note: A&P Assessment and Plan (1) NSTEMI (non-ST elevated myocardial infarction): Code(s): I21.4 - Non-ST elevation (NSTEMI) myocardial infarction Status: Acute Assessment and Plan: Cardiac cath 01/01 showed: 1. Non-obstructive coronary arteries 2. Left ventricular end-diastolic pressure of 15mmHg 3. Preserved left ventricular ejection fraction Echocardiogram 01/01 shows: Normal LVEF 65-70%, no significant valvular disease. Patient is now asymptomatic. Symptoms possibly related to coronary vasospasm vs microvascular dysfunction? At this time, no further inpatient cardiac workup. Continue ASA and statin. Okay for discharge from my standpoint. Will arrange outpatient follow up in our clinic. Recommendations/plan discussed with Hospitalist. Subjective Date/time seen: 01/02/23 10:37 Interval history: Reason for visit: Chest pain, NSTEMI HPI: We are consulted for chest pain, NSTEMI. This is a 47 year old female who presented to [facility] yesterday morning with chest pain. Had left sided chest pain with numbness/tingling of her left arm that began yesterday morning around 5:15 to 5:30AM. Patient was already up at that time and had made her bed, started laundry, and was making breakfast. Pain got worse, therefore went to [facility]. Her chest pain lasted for about 35 minutes and then resolved without recurrence. Her initial troponin was negative, however, second one was positive. EKG showed sinus rhythm without ischemic changes. Given NSTEMI, patient started on Heparin drip. Transferred to [facility]. No history of hypertension, diabetes. No family history of heart disease. Never smoked. Date of service 01/02: Feeling well this morning. Her symptoms have completely resolved. Review of Systems Review of Systems: 8 point ROS obtained. Negative, unless stated in HPI. Exam Const: General: comfortable and no acute distress HENMT: Mouth: Yes moist mucous membranes Eyes: General: appearance normal, both eyes and all related structures Sclera: sclerae normal Neck: Neck: supple Resp: Effort & Inspection: normal respiratory effort Auscultation: clear to auscultation bilaterally Cardio: Rate: regular rate Rhythm: regular rhythm Heart sounds: no murmurs GI: GI Palp: Yes Soft to palpation and No Tenderness to palpation present (GI) Skin: General skin exam: normal color Neuro: Speech: normal speech Extrem: General: normal to inspection Psych: Mental Status: mental status grossly normal Affect: normal affect Objective Data Vital Signs Vital Signs: Vital Signs - 24 hr 01/01/23 11:45 01/01/23 12:00 01/01/23 12:15 Temperature 36.4 C Pulse Rate 60 59 L 65 Respiratory Rate 12 12 16 Blood Pressure 113/71 117/69 111/57 L Pulse Oximetry 100 100 100 Oxygen Delivery Room Air Room Air Room Air 01/01/23 12:35 01/01/23 12:40 01/01/23 13:00 Temperature Pulse Rate 62 61 67 Respiratory Rate 18 12 14 Blood Pressure 122/67 104/79 96/63 L Pulse Oximetry 100 100 100 Oxygen Delivery Room Air Room Air Room Air 01/01/23 12:46 01/01/23 12:55 01/01/23 12:50 Temperature Pulse Rate 64 63 61 Respiratory Rate 16 21 H 23 H Blood Pressure 105/69 110/60 103/56 L Pulse Oximetry 100 100 100 Oxygen Delivery Room Air Room Air Room Air 01/01/23 13:05 01/01/23 13:15 01/01/23 13:30 Temperature Pulse Rate 70 59 L 57 L Respiratory Rate 23 H 18 14 Blood Pressure 99/57 L 91/78 L 115/58 L Pulse Oximetry 99 100 98 Oxygen Delivery Room Air Room Air Room Air 01/01/23 13:45 01/01/23 14:00 01/01/23 14:15 Temperature Pulse Rate 60 61 63 Respiratory Rate 20 15 13 Blood Pressure 105/66 104/49 L 111/61 Pulse Oximetry 100 100 100 Oxygen Delivery Room Air Room Air Room Air 01/01/23 14:30 01/01/23 15:12 01/01/23 15:00 Temperature 36.9 C Pulse Rate 66 59 L Respiratory Rate 16 18 Blood Pressure 114/59 L 106/51 L Pulse Oximetry 100 100 100 Oxygen Delivery Room Air
--- NOTE | 2023-01-02 13:21 | PCCCNOTE ---
On 01/02/23, the student, [Karla Juares], provided care and completed [facility] documentation on this patient. I have reviewed the student's documentation and agree with the findings.
--- NOTE | 2023-01-02 13:35 | PM.DS ---
DS: Admitting Diagnosis Discharge Date January 02, 2023 Admitting Diagnosis Chest pain, non STEMI DS: Discharge Diagnosis Discharge Diagnosis (1) Chest pain: Code(s): R07.9 - Chest pain, unspecified Status: Acute (2) Elevated troponin: Code(s): R77.8 - Other specified abnormalities of plasma proteins Status: Acute (3) Left-sided weakness: Code(s): R53.1 - Weakness Status: Acute (4) Gastroesophageal reflux disease: Code(s): K21.9 - Gastro-esophageal reflux disease without esophagitis Status: Acute (5) Asthma: Qualifiers: Asthma severity: unspecified severity Asthma persistence: unspecified Asthma complication type: unspecified Qualified Code(s): J45.909 - Unspecified asthma, uncomplicated Code(s): J45.909 - Unspecified asthma, uncomplicated Status: Acute Plan The patient presented to the emergency department at the outside facility for evaluation of sudden onset of chest pain radiating through to the back and left arm left upper extremity weakness she had a history of fracture superior medial facet of greater tuberosity December 2021. There was low-grade supraspinatus muscle strain mild supraspinatus tendinopathy without discrete tear small SLAP tear at the superior glenoid labrum tear. Suspect rotator cough related pain probably radiated pain on her chest as well given all.. She also has left-sided neck pain cervical to evaluate this area elevated troponin cath negative. cardiology on board. chest pain: CTA negative. DVT proph: iv heparin DS: Summary Hospital Course Hospital Course: 47-year-old female came in for chest pain and had elevated troponin. Underwent catheterization which did not show any obstructive coronary lesions. Aspirin statin on discharge, follow-up cardiology. Time Spent with Patient Time attestation: Total time spent providing and/or coordinating discharge services: Exam Narrative: General: Well-developed female in the semi-Greenwood position in bed in no acute distress. HEENT: PERRL, EOMI. Sclera anicteric. Oral mucosa moist. Neck: Supple. No JVD or bruits. Respiratory: Lungs are clear to auscultation bilaterally. Cardiovascular: Regular rate and rhythm with S1-S2. Gastrointestinal: Abdomen is soft, nontender, and nondistended with positive bowel sounds. Skin: Warm and dry. No rash or lesions on limited exam. Extremities: No cyanosis, clubbing, or edema. Radial and pedal pulses intact. No palpable knots or cords. No Left shoulder restricted range of motion tender to palpation in upper arm Neurological: Alert and oriented x4. Cranial nerves 2-12 are grossly intact. Speech is clear. No facial asymmetry. Psychiatric: Pleasant and cooperative with normal mood and affect. Judgment and insight intact. DS: Data Data Completed and Pending Labs on day of discharge: Labs from last 24 hours 01/01/23 12:13 Activ Coag Time Kaolin 155 H Discharge Plan Discharge Attending physician on discharge: Herberth Madden Consulting providers: Gale Bettencourt Discharging Clinician: Herberth Madden Patient Disposition: Home, Self-Care Activity: as tolerated Diet: as tolerated Patient Instructions: Antibiotic Form Stand Alone Forms: General Discharge Information Follow-up/Referrals: Gale Bettencourt MD [Physician] - Discharge Medications: New atorvastatin 40 mg Tablet 80 mg PO DAILY 30 Days Qty: 60 0RF aspirin 81 mg Tablet,Delayed Release (Dr/Ec) 81 mg PO QAM 30 Days Qty: 30 0RF Continued omeprazole 40 mg capsule,delayed release(DR/EC) 40 mg PO .hs Qty: 30 5RF montelukast 10 mg tablet 10 mg PO DAILY Qty: 30 0RF Spiriva Respimat 2.5 mcg/actuation mist 2 puff inhalation QAM Qty: 4 5RF budesonide-formoterol [Symbicort] 160-4.5 mcg/actuation HFA aerosol inhaler 2 puff INHALATION Q12H Qty: 10.2 11RF Rx Instructions: Rinse mouth and spit after ea
== END 2023-01-02 14:00 | disposition home or self-care (01) ==
PROVIDERS: Internal Medicine; Physician Assistant; Admitting Provider Chiropractor; PCP Physician Assistant; Visit Provider Chiropractor
PROC: 4A023N7 Measurement of Cardiac Sampling and Pressure, Left Heart, Percutaneous Approach (ICD-10-PCS; CPT 93452; principal; 2023-01-01 10:00)
DX: R07.9 Chest pain, unspecified (principal); R77.8 Other specified abnormalities of plasma proteins; R53.1 Weakness; K21.9 Gastro-esophageal reflux disease without esophagitis; J45.909 Unspecified asthma, uncomplicated; R20.2 Paresthesia of skin; F32.A Depression, unspecified; R91.8 Other nonspecific abnormal finding of lung field; I51.89 Other ill-defined heart diseases; Z85.42 Personal history of malignant neoplasm of other parts of uterus; Z90.710 Acquired absence of both cervix and uterus; F10.90 Alcohol use, unspecified, uncomplicated; I45.10 Unspecified right bundle-branch block; Z79.51 Long term (current) use of inhaled steroids; Z79.899 Other long term (current) drug therapy
CPT/HCPCS: 36415; 70450; 71275; 80053; 80061; 83690; 83735; 84443; 84484; 85025; 85610; 85730; 93005; 93306; 93458; 94640; A9270; C1887; C1894; G0378; G0379; J0461; J1644; J2250; J2405; J3010; J7030; J7040; Q9967

== ENCOUNTER 2023-05-04 05:47 | Emergency (ER) | payer OTHER, SELFPAY ==
[2023-05-04 05:48] VITALS: BP 124/77; PULSE 94; RESP 18; TEMP 36.4; O2SAT 100
[2023-05-04 05:53] VITALS: BP 124/77; PULSE 68; RESP 20; TEMP 36.7; O2SAT 99
--- NOTE | 2023-05-04 06:25 | ED.ABDPAIN ---
HPI - Abdominal Pain General Chief Complaint: Abdominal Pain <Rajan Calderon MD - Last Filed: 05/04/23 06:54> Stated Complaint: Vomiting <Rajan Calderon MD - Last Filed: 05/04/23 06:54> Time Seen by Provider: 05/04/23 07:04 <Rajan Calderon MD - Last Filed: 05/04/23 06:54> Source: patient <Rajan Calderon MD - Last Filed: 05/04/23 06:54> Mode of arrival: ambulatory <Rajan Calderon MD - Last Filed: 05/04/23 06:54> Limitations: no limitations <Rajan Calderon MD - Last Filed: 05/04/23 06:54> History of Present Illness HPI narrative: patient is a 47-year-old female with acute nausea vomiting and abdominal pain for the past 2 days. 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 <Rajan Calderon MD - Last Filed: 05/04/23 06:54> MD elicited complaint: abdominal pain <Rajan Calderon MD - Last Filed: 05/04/23 06:54> Pertinent past history: none <Rajan Calderon MD - Last Filed: 05/04/23 06:54> Onset (ago): day(s) (2) <Rajan Caldeorn MD - Last Filed: 05/04/23 06:54> Pain Consistency: constant <Rajan Calderon MD - Last Filed: 05/04/23 06:54> Location: diffuse and epigastric <Rajan Calderon MD - Last Filed: 05/04/23 06:54> Severity: moderate <Rajan Calderon MD - Last Filed: 05/04/23 06:54> Pain scale (0-10): 7 <Rajan Calderon MD - Last Filed: 05/04/23 06:54> Quality: cramping and sharp <Rajan Calderon MD - Last Filed: 05/04/23 06:54> Radiation: none <Rajan Calderon MD - Last Filed: 05/04/23 06:54> Migration to: no migration <Rajan Calderon MD - Last Filed: 05/04/23 06:54> Exacerbating factors: nothing <Rajan Calderon MD - Last Filed: 05/04/23 06:54> Relieving factors: nothing <Rajan Calderon MD - Last Filed: 05/04/23 06:54> Associated symptoms: nausea and vomiting <Rajan Calderon MD - Last Filed: 05/04/23 06:54> Related Data Patient : No <Rajan Calderon MD - Last Filed: 05/04/23 06:54> Allergies/Adverse Reactions: Allergies Allergy/AdvReac Type Severity Reaction Status Date / Time mold Allergy Severe Difficulty Verified 05/04/23 05:49 Breathing poison shawna extract Allergy Intermediate Rash Verified 05/04/23 05:49 <Rajan Calderon MD - Last Filed: 05/04/23 06:54> Review of Systems Review of Systems: All systems reviewed & are unremarkable except as noted in HPI and below <Rajan Calderon MD - Last Filed: 05/04/23 06:54> Constitutional: Constitutional: Reports no additional constitutional complaints <Rajan Calderon MD - Last Filed: 05/04/23 06:54> Eyes: Eyes: Reports no additional eye complaints <Rajan Calderon MD - Last Filed: 05/04/23 06:54> ENT: Reports system reviewed and no additional complaints, except as documented <Rajan Calderon MD - Last Filed: 05/04/23 06:54> Cardiovascular: Cardiovascular: Reports no additional cardiovascular complaints <Rajan Calderon MD - Last Filed: 05/04/23 06:54> Respiratory: Respiratory: Reports no additional respiratory complaints <Rajan Calderon MD - Last Filed: 05/04/23 06:54> Gastrointestinal: Gastrointestinal: Reports no additional gastrointestinal complaints <Rajan Calderon MD - Last Filed: 05/04/23 06:54> Genitourinary: Genitourinary: Reports no additional female genitourinary complaints <Rajan Calderon MD - Last Filed: 05/04/23 06:54> Musculoskeletal: Musculoskeletal: Reports no additional musculoskeletal complaints <Rajan Calderon MD - Last Filed: 05/04/23 06:54> Integumentary/Breasts: Skin/Breast: Reports system reviewed and no additional complaints, except as docu <Rajan Calderon MD - Last Filed: 05/04/23 06:54> Neurologic: Reports system reviewed and no additional complaints, except as documented <Rajan Calderon MD - Last Filed: 05/04/23 06:54> Psychiatric: Psychiatric: Reports no additional ps
[2023-05-04] MEDS: SODIUM CHLORIDE 0.9% IV 1,000 ML 999 ML IV CONT (06:37)
[2023-05-04] MEDS: ONDANSETRON INJ 4 MG/2 ML VIAL IV PUSH (06:38)
[2023-05-04 06:39] LABS: Basophils Absolute Auto 0.02 K/mm3 (0.00-0.10); Basophils Percent Auto 0.4 % (0.0-1.0); Eosinophils Absolute Auto 0.02 K/mm3 (0.02-0.50); Eosinophils Percent Auto 0.4 % (1.0-6.0); Hematocrit 44.6 % (35.0-49.0); Hemoglobin 15.7 g/dL (12.0-15.0); Immature Granulocyte Absolute 0.02 K/mm3 (0.00-0.00); Immature Granulocyte Percent A 0.4 % (0.0-0.0); Lymphocytes Absolute Auto 0.83 K/mm3 (1.10-4.50); Lymphocytes Percent Auto 16.8 % (18.0-42.0); Mean Corpuscular HGB Conc 35.2 g/dL (32.0-36.0); Mean Corpuscular Hemoglobin 32.3 pg (27.0-31.0); Mean Corpuscular Volume 91.8 fL (78.0-102.0); Mean Platelet Volume 10.1 fl (9.2-11.8); Monocytes Absolute Auto 0.28 K/mm3 (0.10-0.90); Monocytes Percent Auto 5.7 % (2.0-11.0); Neutrophils Absolute Auto 3.8 K/mm3 (1.7-7.2); Neutrophils Percent Auto 76.3 % (50.0-70.0); Platelet Count Result 275 K/mm3 (150-420); Red Blood Count 4.86 M/mm3 (4.20-5.40); Red Cell Distribution Width 11.5 % (11.6-14.4)
[2023-05-04 07:02] LABS: Alanine Aminotransferase 27 U/L (14-59); Albumin Level 4.5 g/dL (3.4-5.0); Alkaline Phosphatase 67 U/L (46-116); Anion Gap 13 mmol/L (8-16); Aspartate Amino Transferase 14 U/L (15-37); Bilirubin,Total 0.8 mg/dL (0.00-1.00); Blood Urea Nitrogen 22 mg/dL (7-18); Calcium 10.1 mg/dL (8.5-10.1); Carbon Dioxide 25 mmol/L (21-32); Chloride 99 mmol/L (98-108); Estimated CRCL calculation 61 ml/min; Estimated Glomerular Filt Rate > 60; Glucose 86 mg/dL (70-99); Lipase 36 U/L (16-77); Magnesium 2.1 mg/dL (1.8-2.4); Osmolality Calculated 286 mOsm/kg (285-295); Potassium 4.2 mmol/L (3.5-5.1); Sodium 137 mmol/L (136-145)
[2023-05-04 07:15] VITALS: BP 122/69; PULSE 70; RESP 16; TEMP 36.3; O2SAT 100
== END 2023-05-04 07:15 | disposition home or self-care (01) ==
PROVIDERS: Emergency Medicine; Emergency Provider Emergency Medicine
DX: K52.9 Noninfective gastroenteritis and colitis, unspecified (principal); E86.0 Dehydration; J45.909 Unspecified asthma, uncomplicated; K21.9 Gastro-esophageal reflux disease without esophagitis; F32.A Depression, unspecified; Z85.42 Personal history of malignant neoplasm of other parts of uterus; Z79.51 Long term (current) use of inhaled steroids; Z79.82 Long term (current) use of aspirin
CPT/HCPCS: 80053; 83690; 83735; 85025; 96361; 96374; 99284; J2405; J7030

== ENCOUNTER 2023-06-19 14:19 | Outpatient (CLI) | payer OTHER, SELFPAY ==
--- NOTE | ~2023-06-19 | MM_ITS ---
EXAMINATION: MM screening yamile BI w shira HISTORY: Screening mammogram TECHNIQUE: Craniocaudal and mediolateral oblique 3-D tomosynthesis images were obtained and synthetic 2-D images were generated. CAD analysis was submitted and interpreted. COMPARISON: 06/16/2022, 06/13/2021, 02/29/2020 bilateral screening mammogram examinations BREAST PARENCHYMAL COMPOSITION: The breasts are heterogeneously dense, which may obscure small masses . FINDINGS: There is no evidence of suspicious mass, calcification, or architectural distortion to sugg est malignancy in either breast. There has been no suspicious interval change. IMPRESSION: 1. No mammographic evidence of malignancy. 2. Recommend routine screening mammography in one year. BI-RADS Category 1: Negative Reviewed, dictated and finalized at location B. 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
== END 2023-06-19 14:20 | disposition home or self-care (01) ==
LOC: CHSIMG 14:20
PROVIDERS: PCP Physician Assistant; Visit Provider Physician Assistant
DX: Z12.31 Encounter for screening mammogram for malignant neoplasm of breast (principal)
CPT/HCPCS: 77063; 77067

== ENCOUNTER 2023-12-30 13:46 | Outpatient (CLI) | payer OTHER, SELFPAY ==
--- NOTE | ~2023-12-30 | US_ITS ---
EXAMINATION: US soft tissue chest DATE: 12/30/2023 14:12 INDICATION: Left chest lump. TECHNIQUE: Multiple grayscale and Doppler ultrasound images of the chest were obtained. COMPARISON: Chest CT 12/31/2022 FINDINGS: In the left lateral chest wall, there is a 2.9 x 0.8 x 4.3 cm subcutaneous mass with echoge nicity and echotexture equal to the subcutaneous fat, consistent with a lipoma. IMPRESSION: 1. 4.3 cm subcutaneous lipoma in left lateral chest wall. Reviewed, dictated and finalized at location A.
== END 2023-12-30 13:47 | disposition home or self-care (01) ==
LOC: CHSIMG 13:48
PROVIDERS: PCP Physician Assistant; Visit Provider Family Medicine
DX: D17.1 Benign lipomatous neoplasm of skin and subcutaneous tissue of trunk (principal)
CPT/HCPCS: 76604

== ENCOUNTER 2024-06-20 16:05 | Outpatient (RCR) | payer OTHER, SELFPAY ==
--- NOTE | 2024-06-24 07:34 | BUOTOPEVAL ---
Assessment and note entered by Laura Lares OT Evaluation Information Assessment Status Evaluation Diagnosis DeQuervain's tenosynovitis ICD-10 Condition Codes (OT) M79.641 Reported Pain Level Pain Score 0: Self Report Assessment OT Clinical Summary The patient is a 49 year old female who was referred to outpatient OT due to DeQuervain's tenosynovitis and surgery on 06/09/24 for right DeQuervains disease release, arthroplasty thumb, interposition, carpometacarpal. The patient previously was experiencing 10/10 pain in R thumb during any active movement and had received steroid shots for the pain. She then had surgery for release and demonstrates significantly lower pain. At this time, she reports 2-3/10 pain in R thumb at CMC joint and is required to be immobilized at thumb and wrist to maintain integrity of joint after surgery. Therapist educated patient on UE HEP to perform at this time including PROM only to thumb and intrinsic tendon glides/abduction/adduction of digits 2-5. The patient demonstrates minimal pain and swelling, limited AROM, and potential weakness from surgery resulting in decreased function of R, dominant hand. The patient requires skilled OT to address deficits following protocol for DeQuervain's release at this time in order to regain full function of hand and maximize independence in pain free range. Plan of Care Interventions Therapeutic Exercise,Manual Therapy,Neuro Re- education,Therapeutic Activities,Hot Pack/Cold Pack,Sensory Integrative Techn,Self-Care/Home Management,Prosthetic Training,Check Out for Orthotic/Pr,Ultrasound OT Services Indicated Yes Treatment Frequency and 1-2x/week for 12 visits. Duration These treatments will address the objective and functional deficits as defined above. The patient will be advanced safely and appropriately in order for the patient to progress towards his/her prior level of function. Additional exercises will be introduced and as well as a comprehensive home exercise program upon discharge, if needed, ?to ensure carryover of functional gains achieved in the clinic. This treatment plan has been reviewed and agreement upon by the patient.
--- NOTE | 2024-06-24 07:35 | OPREHPOC ---
Outpatient Therapy Plan of Care This is a Multidisciplinary Plan of Care that may contain components documented by all disciplines (PT, OT, and ST.) OT Problem 1 OT Problem #1 Knowledge Deficit OT Goal 1 Goal / Goal Update The patient will demonstrate 100% knowledge and return demonstration for UE HEP needed to maintain ROM and regain strength of R hand. Target Visit 12 OT Problem 2 OT Problem #2 Pain OT Goal 1 Goal / Goal Update The patient will demonstrate 0/10 pain with daily tasks (following release by MD) to improve independence in daily tasks that require use of R hand. Target Visit 12 OT Problem 3 OT Problem #3 Impaired Range of Motion OT Goal 1 Goal / Goal Update The patient will demonstrate WNL AROM (following release by MD) to perform full AROM of R first digit at joints IP, MP and CMC in order to perform fine motor coordination tasks such as buttoning shirts. Target Visit 12 OT Problem 4 OT Problem #4 Impaired Strength OT Goal 1 Goal / Goal Update The patient will demonstrate WNL occupational therapy aide strength and pinch strength with R UE (to address upon release from MD) in order to grasp pots and pants for cooking. Target Visit 12
--- NOTE | 2024-08-24 08:43 | BUOTOPEVAL ---
Assessment and note entered by Laura Lares, OT Evaluation Information Assessment Status Progress Diagnosis DeQuervain's tenosynovitis ICD-10 Condition Codes (OT) Pain in right hand M79.641 Reported Pain Level Pain Score 0: Self Report Pain Score 0: Self Report Pain Score 0: Self Report Pain Score 0: Self Report Pain Score 0: Self Report Pain Score 0: Self Report Pain Score 0: Self Report Pain Score 0: Self Report Assessment OT Clinical Summary The patient demonstrates significant progress in pain, ROM, fine motor coordination and strength of R hand following surgery. She demonstrates good compliance with UE HEP and use of splint appropriately. She reports no pain at this time but does have aching in thenar eminence, described as fatigue. She scored -1 second for normative measures for 9-hole peg test demonstrating WNL for fine motor coordination of affected hand. She demonstrates WFL for thumb flexion/extension with continued progress on achieving full AROM. 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 The patient was issues HEP and yellow theraputty for home use. The patient demonstrates good progress toward goals with reasonable expectation for improvement. Plan of Care Interventions Therapeutic Exercise,Manual Therapy,Neuro Re- education,Therapeutic Activities,Sensory Integrative Techniques,Prosthetic Training OT Services Indicated Yes Treatment Frequency and 1x/week for 4 visits. Duration These treatments will address the objective and functional deficits as defined above. The patient will be advanced safely and appropriately in order for the patient to progress towards his/her prior level of function. Additional exercises will be introduced and as well as a comprehensive home exercise program upon discharge, if needed, ?to ensure carryover of functional gains achieved in the clinic. This treatment plan has been reviewed and agreement upon by the patient.
--- NOTE | 2024-08-24 08:43 | OPREHPOC ---
Outpatient Therapy Plan of Care This is a Multidisciplinary Plan of Care that may contain components documented by all disciplines (PT, OT, and ST.) OT Problem 1 OT Problem #1 Knowledge Deficit OT Goal 1 Goal / Goal Update The patient will demonstrate 100% knowledge and return demonstration for UE HEP needed to maintain ROM and regain strength of R hand. GOAL MET Target Visit 12 Progress Met OT Problem 2 OT Problem #2 Pain OT Goal 1 Goal / Goal Update The patient will demonstrate 0/10 pain with daily tasks (following release by MD) to improve independence in daily tasks that require use of R hand. GOAL MET; 0/10; 08/22/24 Target Visit 12 OT Problem 3 OT Problem #3 Impaired Range of Motion OT Goal 1 Goal / Goal Update The patient will demonstrate AROM of R thumb at CMC flexion to >40 degrees, MP flexion >50 and IP >70 degrees to perform full AROM of R first digit at joints IP, MP and CMC in order to perform fine motor coordination tasks such as buttoning shirts . GOAL UPGRADED; CONTINUE Patient demonstrates WFL thumb flexion/extension at this time with no pain during thumb mobility. Patient does not and is aware not to hyperextend thumb. R CMC: 38 degrees R MP: 45 degrees R IP: 62 degrees Target Visit 12 OT Goal 2 Goal / Goal Update The patient will demonstrate WNL fine motor coordination scoring WNL for 9-hole peg test to improve homemaking tasks. 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
== END 2024-09-18 23:59 | disposition home or self-care (01) ==
LOC: CHSOT 16:05
PROVIDERS: Visit Provider Orthopaedic Surgery
DX: M65.4 Radial styloid tenosynovitis [de Quervain] (principal)
CPT/HCPCS: 97110; 97140; 97166; 97530

== ENCOUNTER 2024-06-21 14:48 | Outpatient (CLI) | payer OTHER, SELFPAY ==
--- NOTE | ~2024-06-21 | MM_ITS ---
EXAMINATION: MM screening yamile BI w shira HISTORY: Screening mammogram TECHNIQUE: Craniocaudal and mediolateral oblique 3-D tomosynthesis images were obtained and synthetic 2-D images were generated. CAD analysis was submitted and interpreted. COMPARISON: 06/19/2023, 06/16/2022, 06/13/2021, 02/29/2020 BREAST PARENCHYMAL COMPOSITION:Dense: The breasts are extremely dense, which lowers the sensitivity o f mammography. FINDINGS: There is an asymmetric density in the posterior, slightly upper left breast. Stable parench ymal pattern of the right breast. No suspicious microcalcifications. IMPRESSION: Posterior, upper left breast asymmetric density. Spot compression views and possibly ultrasound are recommended for further evaluation. BI-RADS Category 0: Incomplete: Needs additional imaging evaluation. Reviewed, dictated and finalized at location . GIRL IMPRESSION: Posterior, upper left breast asymmetric density. Spot compression views and po ssibly ultrasound are recommended for further evaluation. BI-RADS Category 0: Incomplete: Needs additional imaging evaluation.
== END 2024-06-21 14:49 | disposition home or self-care (01) ==
PROVIDERS: PCP Physician Assistant; Visit Provider Physician Assistant
DX: Z12.31 Encounter for screening mammogram for malignant neoplasm of breast (principal); R92.8 Other abnormal and inconclusive findings on diagnostic imaging of breast
CPT/HCPCS: 77063; 77067

== ENCOUNTER 2024-07-08 08:45 | Outpatient (CLI) | payer OTHER, SELFPAY ==
--- NOTE | ~2024-07-08 | MMUS_ITS ---
EXAMINATION: MM diagnostic yamile LT w shira, US breast LT limited HISTORY: Follow-up left breast asymmetries TECHNIQUE: Additional 3-D tomosynthesis images of the left breast were performed and synthetic 2-D im ages were generated. CAD analysis was submitted and interpreted. High resolution Limited left breast ultrasound was performed. COMPARISON: No prior studies for comparison. BREAST PARENCHYMAL COMPOSITION: Dense: The breasts are heterogeneously dense, which may obscure small masses FINDINGS: MAMMOGRAPHIC FINDINGS: There are no discrete masses or architectural distortion. Left breast asymmetry is less dense with sp ot compression views, likely superimposed fibroglandular tissue. ULTRASOUND: Limited left breast ultrasound: Normal heterogeneous echotexture without focal solid or cystic mass. IMPRESSION: 1. No evidence for malignancy in the left breast. Benign findings. 2. Routine yearly screening mammogram and regular clinical breast examination are recommended. BI-RADS Category 1: Negative Reviewed, dictated and finalized at location B. 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 No evidence for malignancy in the left breast. Benign findings. 2. Routine yearly screening mammogram and regular clinical breast examination a re recommended. BI-RADS Category 1: Negative
== END 2024-07-08 08:46 | disposition home or self-care (01) ==
LOC: CHSIMG 08:46
PROVIDERS: PCP Physician Assistant
DX: N64.59 Other signs and symptoms in breast (principal)
CPT/HCPCS: 76642; 77061; 77065; G0279

== ENCOUNTER 2024-10-17 15:35 | Outpatient (RCR) | payer OTHER, SELFPAY ==
--- NOTE | 2024-10-18 15:36 | BUOTOPEVAL ---
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 Patient to follow CMC arthroplasty rehabilitation protocol ( see chart) and avoid hyperextension of thumb. The patient previously was having pain in L thumb joint during daily tasks and received surgery to alleviate pain. The patient now reports 3/10 pain at all times and 8/10 pain at its worst. She reports she feels a lot of achiness, stiffness and throbbing discomfort in L wrist and thumb. She reports that her custom splint feels comfortable but she does have relief when she takes splint off at the end of the day at rest. The patient demonstrates moderately impaired AROM of thumb and wrist, minimal edema of L hand which affects ROM, and pain. She scored 77.3 on QuickDASH questionnaire at SOC which demonstrates moderate to severe dysfunction of L UE at this time. The patient requires skilled OT to address deficits and return patient to full AROM of wrist and hand and decrease edema. The patient demonstrates good understanding of HEP and splint wearing schedule. Plan of Care Interventions Therapeutic Exercise,Manual Therapy,Neuro Re- education,Therapeutic Activities,Hot Pack/Cold Pack,Electrical Stimulation,Sensory Integrative Techniques,Self-Care/Home Management,Prosthetic Training,Ultrasound OT Services Indicated Yes Treatment Frequency and 2-3x / week for 12 visits Duration These treatments will address the objective and functional deficits as defined above. The patient will be advanced safely and appropriately in order for the patient to progress towards his/her prior level of function. Additional exercises will be introduced and as well as a comprehensive home exercise program upon discharge, if needed, to ensure carryover of functional gains achieved in the clinic. This treatment plan has been reviewed and agreement upon by the patient.
--- NOTE | 2024-10-18 15:36 | OPREHPOC ---
Outpatient Therapy Plan of Care This is a Multidisciplinary Plan of Care that may contain components documented by all disciplines (PT, OT, and ST.) OT Problem 1 OT Problem #1 Knowledge Deficit OT Goal 1 Goal / Goal Update The patient will demonstrate 100% knowledge and return demonstration of HEP for each phase of protocol to maximize progress and regain function of L hand. Target Visit 12 OT Problem 2 OT Problem #2 Pain OT Goal 1 Goal / Goal Update The patient will demonstrate decreased pain of L wrist and hand reporting <4/10 at worst and 1-0/10 during daily tasks in order to perform ADLs without discomfort. Target Visit 12 OT Problem 3 OT Problem #3 Edema OT Goal 1 Goal / Goal Update The patient will demonstrate decreased edema of L hand and wrist to WNL comparative to R UE in order to achieve full ROM for regaining full strength of affected UE. SOC L UE measurements: DPC: 18 cm Thumb palm: 20.5 cm Proximal phalanx: 6 cm Distal wrist: 15.25 cm Target Visit 12 OT Goal 2 Goal / Goal Update The patient will demonstrate increased AROM of L wrist and thumb by demonstrating WNL wrist AROM and thumb AROM for composite grasp needed to achieve full recovery and grasp/hold items for daily tasks. L UE AROM: Thumb: IP flexion 32 degrees MP flexion 26 degrees Abduction 48 degrees Extension 35 degrees Wrist flexion: 28 degrees Wrist extension: 29 degrees Radial deviation: 14 degrees Ulnar deviation: 14 degrees Target Visit 12
--- NOTE | 2024-12-13 17:07 | BUOTOPDC ---
Assessment and note entered by Laura Lares OT Evaluation Information Assessment Status Discharge Assessment Status Evaluation Diagnosis Aftercare following surgery Diagnosis Aftercare following surgery ICD-10 Condition Codes (OT) Pain in left wrist M25.532,Generalized muscle weakness M62.81 ICD-10 Condition Codes (OT) Pain in left wrist M25.532,Generalized muscle weakness M62.81 Other ICD-10 Condition Codes ( M18.12 Primary osteoarthritis of first OT) carpometacarpal joint of L hand Other ICD-10 Condition Codes ( M18.12 Primary osteoarthritis of first OT) carpometacarpal joint of L hand Reported Pain Level Pain Score 0: Self Report Pain Score Mild Pain: [place] Pain Score 0: Self Report Pain Score 0: Self Report Pain Score 3: Self Report Assessment OT Clinical Summary The patient demonstrates significant progress in return demonstration of HEP, reports 0/10 pain of L thumb, no edema to L hand with measurements comparable to R hand, WNL AROM of L wrist (all planes of motion) which have increased the patient 's independence with daily life and reduced pain which has improved quality of life. Therapist assessed washer and crusher tender strength at discharge with patient demonstrating WFL washer and crusher tender and pinch strength needed to perform daily tasks. The patient reports no issues with thumb or wrist since being out of splint and is confident to continue HEP at home and be discharged this date. The patient has been educated on healing process and to continue with strengthening of L hand. 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 Patient to follow CMC arthroplasty rehabilitation protocol ( see chart) and avoid hyperextension of thumb. The patient previously was having pain in L thumb joint during daily tasks and received surgery to alleviate pain. The patient now reports 3/10 pain at all times and 8/10 pain at its worst. She reports she feels a lot of achiness, stiffness and throbbing discomfort in L wrist and thumb. She reports that her custom splint feels comfortable but she does have relief when she takes splint off at the end of the day at rest. The patient demonstrates moderately impaired AROM of thumb and wrist, minimal edema of L hand which affects ROM, and pain. She scored 77.3 on QuickDASH questionnaire at SOC which demonstrates moderate to severe dysfunction of L UE at this time. The patient requires skilled OT to address deficits and return patient to full AROM of wrist and hand and decrease edema. The patient demonstrates good understanding of HEP and splint wearing schedule. Plan of Care Interventions Therapeutic Exercise,Manual Therapy,Neuro Re- education,Therapeutic Activities,Hot Pack/Cold Pack,Electrical Stimulation,Sensory Integrative Techniques,Self-Care/Home Management,Prosthetic Training,Ultrasound OT Services Indicated No OT Services Indicated Yes OT Services Indicated Yes Treatment Frequency and 2-3x / week for 12 visits Duration
--- NOTE | 2024-12-13 17:07 | BUOTOPDC ---
Assessment and note entered by Laura Lares, OT Evaluation Information Assessment Status Discharge Diagnosis Aftercare following surgery Diagnosis Aftercare following surgery ICD-10 Condition Codes (OT) Pain in left wrist M25.532,Generalized muscle weakness M62.81 ICD-10 Condition Codes (OT) Pain in left wrist M25.532,Generalized muscle weakness M62.81 Other ICD-10 Condition Codes ( M18.12 Primary osteoarthritis of first OT) carpometacarpal joint of L hand Reported Pain Level Pain Score 0: Self Report Assessment OT Clinical Summary The patient demonstrates significant progress in return demonstration of HEP, reports 0/10 pain of L thumb, no edema to L hand with measurements comparable to R hand, WNL AROM of L wrist (all planes of motion) which have increased the patient 's independence with daily life and reduced pain which has improved quality of life. Therapist assessed census clerk strength at discharge with patient demonstrating WFL census clerk and pinch strength needed to perform daily tasks. The patient reports no issues with thumb or wrist since being out of splint and is confident to continue HEP at home and be discharged this date. The patient has been educated on healing process and to continue with strengthening of L hand. Plan of Care OT Services Indicated No
--- NOTE | 2024-12-13 17:08 | OPREHPOC ---
Outpatient Therapy Plan of Care This is a Multidisciplinary Plan of Care that may contain components documented by all disciplines (PT, OT, and ST.) OT Problem 1 OT Problem #1 Knowledge Deficit OT Goal 1 Goal / Goal Update The patient will demonstrate 100% knowledge and return demonstration of HEP for each phase of protocol to maximize progress and regain function of L hand. Target Visit 12 OT Problem 2 OT Problem #2 Pain OT Goal 1 Goal / Goal Update The patient will demonstrate decreased pain of L wrist and hand reporting <4/10 at worst and 1-0/10 during daily tasks in order to perform ADLs without discomfort. 0/10 Target Visit 12 OT Problem 3 OT Problem #3 Edema OT Goal 1 Goal / Goal Update The patient will demonstrate decreased edema of L hand and wrist to WNL comparative to R UE in order to achieve full ROM for regaining full strength of affected UE. 12/07/2024 SOC L UE measurements: DPC: 17.5 cm Thumb palm: 20.5 cm Proximal phalanx: 5.5 cm Distal wrist: 15 cm Target Visit 12 OT Goal 2 Goal / Goal Update The patient will demonstrate increased AROM of L wrist and thumb by demonstrating WNL wrist AROM and thumb AROM for composite grasp needed to achieve full recovery and grasp/hold items for daily tasks. L UE AROM: Thumb: IP flexion 55 degrees MP flexion 35 degrees Abduction 48 degrees Extension 35 degrees Wrist flexion: 60 degrees Wrist extension: 56 degrees Radial deviation: 14 degrees Ulnar deviation: 14 degrees Target Visit 12
== END 2024-12-07 20:00 | disposition home or self-care (01) ==
LOC: CHSOT 15:35
PROVIDERS: Visit Provider Orthopaedic Surgery
DX: Z48.89 Encounter for other specified surgical aftercare (principal)
CPT/HCPCS: 97110; 97140; 97165; 97530

== ENCOUNTER 2025-07-31 10:13 | Outpatient (CLI) | payer OTHER, SELFPAY ==
--- NOTE | ~2025-07-31 | MM_ITS ---
EXAMINATION: MM diagnostic yamile BI w shira HISTORY: Follow-up. Palpable abnormalities felt by the nurse, which the patient does not palpate. TECHNIQUE: Craniocaudal and mediolateral oblique 3-D tomosynthesis images were obtained and synthetic 2-D images were generated. CAD analysis was submitted and interpreted. Grayscale sonography over the area(s) of interest with color Doppler if there is a finding. COMPARISON: Multiple studies dating back to 2022 BREAST PARENCHYMAL COMPOSITION: Dense: The breasts are heterogeneously dense MAMMOGRAM FINDINGS: There are findings consistent with the known breast cysts. No suspicious masses are seen. There are no suspicious calcifications. No unexplained architectural distortion is seen. There are no skin or nipple abnormalities identified. There is no adenopathy seen on the images submitted. ULTRASOUND FINDINGS: At 10:00 on the right, there is a cyst with a maximum dimension of 5 mm and a few low-level echoes. This was seen on the July, study and is unchanged. There is a hypoechoic, ovoid mass with 2 single thin septations versus echogenic striations. The maximum dimension is on the order of 10 mm. There is a parallel orientation, and it is quite deep. IMPRESSION: Benign-appearing findings as described. No mammographic or sonographic evidence to suggest malignancy is seen. The patient may return to screening mammography as per ACR guidelines. BI-RADS 2 - Benign. Reviewed, dictated and finalized at location C. ATIC TEACHER
--- OUTSIDE RECORDS SUMMARY | 2025-07-31 10:44 | XMS_ITS | Clinical Summary ---
Author Organization [facility] Address [address], [address] [address] Phone Care Team Providers Care Clinical Research Spec Name Role Phone Carlos Cam Primary Care Provider [phone] Brittaney Kuhn APRN, HEEL SANDER RUBBER Unavailable Medications atorvastatin (Lipitor) 10 MG Tablet Take 10 mg by mouth daily. Active amLODIPine (Norvasc) 2.5 MG Tablet Take 2.5 mg by mouth daily. Active budesonide-form oterol fumarate (Symbicort) 160-4.5 MCG/ACT Aerosol 2 Puffs daily. Active tiotropium (Spiriva Respimat) 1.25 MCG/ACT Aerosol Solution 2 Puffs daily. Activ e aspirin 81 MG Chewable Tablet Take 81 mg by mouth daily. Active nitroGLYCERIN (NITRODUR) 0.2 MG/HR PATCH 24 HR by Transdermal route as needed. Active Active Problems No known active problems Social History Tobacco Use Types Packs/Day Years Used Date Smoking Tobacco: Never Tobacco Cessation:Counseling Given: Not Answered Comments Unknown Sex and Gender Information Value Date Recorded Sex Assigned at Not on file Legal Sex Female 7:41 PM CDT Gender Identity Not on file Sexual Orientation Not on file Last Filed Vital Signs Vital Sign Reading Time Taken Comments Blood Pressure 94/60 02/25/2024 1:05 PM CDT Pulse 74 02/25/2024 1:05 PM CDT Temperature 37 C (98.6 F) 02/25/2024 1:05 PM CDT Respiratory Rate 16 02/25/2024 1:05 PM CDT Oxygen Saturation 96% 02/25/2024 1:05 PM CDT Inhaled Oxygen Concentration - - Weight 55.8 kg (123 lb) 02/25/2024 1:05 PM CDT Height 162.6 cm (5' 4) 02/25/2024 1:05 PM CDT Body Mass Index 21.11 02/25/2024 1:05 PM CDT Plan of Treatment Health Maintenance Due Date Last Done Comments Hepatitis C Virus (HCV) Screening 1973 Mammogram 1973 TdaP Immunization 1973 Hepatitis B Immunization (1 of 3 - 19+ 3-dose series) 1992 Pap Smear 1994 Cervical Cancer Screening (CCS) 2003 HPV/Cotest 2003 Cologuard 2018 Colonoscopy 2018 Colorectal Cancer Screening 2018 Immunochemical Fecal Occult Blood 2018 Pneumococcal Immunization (50+ years) (1 of 1 - PCV) 2023 Zoster Immunization (1 of 2) 2023 Influenza Immunization (#1) 2025 SARS-COV-2 Immunization ( season) 2025 09/28/2020, 09/28/2020, 09/07/2020, Additional history exists Respiratory Syncytial Virus (RSV) Immunization (Adult) (1 - 1-dose 75+ series) 2048 Human Papillomavirus (HPV) Immunization (No Doses Required) Completed Meningococcal Immunization (ACWY) Aged Out No longer eligible based on patient's age to complete this topic Rotavirus Immunization Aged Out No lo nger eligible based on patient's age to complete this topic Insurance [facility] Care Teams Clinical Research Spec Relationship Specialty Start Date End Date Carlos Cam, [facility] [address] [place] [id number] PCP - General Physician Computer Tester 02/25/24 Brittaney Kuhn APRN, HEEL SANDER RUBBER [address] [place] [address] Nurse Practitioner Advanced Practice Nurse 02/25/24
--- OUTSIDE RECORDS SUMMARY | 2025-07-31 10:44 | XMS_ITS | Clinical Summary ---
Author Organization [facility] Address [address] [place] [address] Care Team Providers Care Maintenance Foreman Name Role Phone Carlos Cam Primary Care Provider [phone] Source Comments [facility],non-owned Affiliates and Associated Physician Practices is amultiple site organization consisting of ambulatory clinics and hospital sitesin [place], [place], [place] and [place]. This disclosure is being madepursuant to the Care Everywhere program and may not contain all information available regarding this patient. Last updated 18.[facility] Allergies No known active allergies Medications * Be aware that medications may not be up to date on this document. Alwaysverify current medications with the patient. albuterol HFA (PROAIR HFA) 108 (90 Base) MCG/ACT inhaler Inhale 2 puffs by mouth every 6 hours as needed Active HYDROcodone-ac etaminophen (NORCO) 5-325 MG tablet Take 1 tablet by mouth every 6 hours as needed 35 tablet 9 Active Additional Information Patient not taking.Reported on 04/08/2019 acetaminophen (TYLENOL) 325 MG tablet Take 1 tablet by mouth every 4 hours as needed for Fever or Pain Maximum allowable Acetaminophen amount = 4 Grams (4000 mg) / 24 hours. 60 tablet 2 9 Active Additional Information Patient not taking.Reported on 04/08/2019 acetaminophen- codeine (TYLENOL #3) 300-30 MG tablet Take 1 tablet by mouth every 6 hours as needed for Pain 60 tablet 2 9 Active Additional Information Patient not taking.Reported on 04/08/2019 cyclobenzaprin e (FLEXERIL) 5 MG tablet Take 1 tablet by mouth 3 times daily as needed (Muscle spasms) 30 tablet 9 Active Additional Information Patient not taking.Reported on 04/08/2019 docusate sodium (COLACE) 100 MG capsule Take 1 capsule by mouth once daily 60 capsule 2 9 Active Additional Information Patient not taking.Reported on 04/08/2019 Active Problems Problem Noted Date Diagnosed Date Cavovarus deformity of foot, acquired, 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 Retained orthopedic hardware 09/12/2018 Social History Tobacco Use Types Packs/Day Years Used Date Smoking Tobacco: Never Smokeless Tobacco: Never Alcohol Use Standard Drinks/Week Comments Yes 0 (1 standard drink = 0.6 oz pur e alcohol) occ Comments No Sex and Gender Information Value Date Recorded Sex Assigned at Not on file 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 Gender Identity Not on file Sexual Orientation Not on file Last Filed Vital Signs Vital Sign Reading Time Taken Comments Blood Pressure 112/78 01/28/2019 11:10 AM CDT Pulse 74 01/13/2019 8:31 AM CDT Temperature 36.7 C (98 F) 01/13/2019 8:31 AM CDT Respiratory Rate 18 01/13/2019 8:31 AM CDT Oxygen Saturation 100% 01/13/2019 8:31 AM CDT Inhaled Oxygen Concentration - - Weight 59 kg (130 lb) 04/08/2019 8:51 AM CDT Height 160 cm (5' 3) 04/08/2019 8:51 AM CDT Body Mass Index 23.03 04/08/2019 8:51 AM CDT Plan of Treatment Health Maintenance Due Date Last Done Comments COLOGUARD (AGES 45-75) - COL ON CA SCREENING 1973 COLON MONITORING 1973 COLONOSCOPY - COLON CA SCREENING 1973 CT COLONOGRAPHY - COLON CA SCREENING 1973 Colorectal Cancer Screening 1973 FIT - COLON CA SCREENING 1973 FLEX SIG - COLON CA SCREENING 1973 LIPID TESTING 1973 MAMMOGRAM 1973 Opioid Medication Agreement - Annual 1973 HIV SCREENING 1988 HEPATITIS C SCREENING 06/13/1991 DTAP/TDAP/TD VACCINES (1 - Tdap) 1992 HEPATITIS B VACCINE (1 of 3 - 19+ 3-dose series) 1992 PNEUMOCOCCAL VACCINE 50+ (1 of 1 - PCV) 2023 ZOSTER VACCINE (1 of 2) 2023 DEPRESSION SCREENING 08/03/2024 COVID-19 VACCINE (1 - 2024-2 6 season) 2025 INFLUENZA VACCINE (#1) 2025 HIB VACCINE Aged Out No longer eligi ble based on patient's age to complete this topic HPV VACCINE Aged Out No longer eligi ble based on patient's age to complete this topic MENINGOCOCCAL (Group B) VACC INE SHARED DECISION-MAKING Aged Out No longer eligibl e based on patient's age to complete this topic MENINGOCOCCAL GROUPS A/C/Y/W VACCINE Aged Out No longer eligible b ased on patient's age to complete this topic Medical Devices Implanted Type Area Delivery Man Device Identifier Shelf Expiration Date Model / Serial / Lot Plate Calc Edgelock Bone Implanted:Qty: 1 on 01/12/2019 by Christo Urena DO at [facility] Right: Foot [employer] EDL-001-00 / / Screw 3.5mm 37.5mm Ft/Ankl Maxlock Xtrm Implanted:Qty: 1 on 01/12/2019 by Christo Urena DO at [facility] Right: Foot [employer] PATIENT SCHEDULING COORDINATOR-011-35 -375 / / Screw 3.5mm 40mm Ft/Ankl Nonlock Implanted:Qty: 1 on 01/12/2019 by Christo Urena DO at [facility] Right: Foot [employer] PATIENT SCHEDULING COORDINATOR-011-35 -40 / / Insurance AETNA AETNA Advance Directives * Full Code (Latest Code Status on File) Date Activated Date Inactivated Comments 01/12/2019 4:32 PM 01/13/2019 2:36 PM Care Teams Maintenance Foreman Relationship Specialty Start Date End Date Carlos Cam PA [address] [place] [address] PCP - General Physician Sales Review Clerk 01/12/19
--- OUTSIDE RECORDS SUMMARY | 2025-07-31 10:44 | XMS_ITS | Clinical Summary ---
Author Organization [facility] Address [address] [place] [address] Care Team Providers Care Veterans' Coordinator Name Role Phone Carlos Cam Primary Care Provider [phone] Mayela Cohn TRAIL CONSTRUCTION WORKER Unavailable [phone] Allergies No known active allergies Medications budesonide/formoter ol fumarate (SYMBICORT INHAL) Inhale Ac tive albuterol HFA (PROVENTIL HFA,VENTOLIN HFA,PROAIR HFA) 90 mcg/actuation inhaler Inhale 2 puffs every 6 (six) hours as needed Active nitroglycerin (NITROSTAT) 0.4 mg SL tabletIndications:H istory of non-ST elevation myocardial infarction (NSTEMI) Place 1 tablet (0.4 mg total) under the tongue every 5 (five) minutes as needed for chest pain May repeat dose every 5 minutes for up to 3 doses total. 25 tablet 3 3 Active rizatriptan BUSINESS ENGLISH INSTRUCTOR (MAXALT-BUSINESS ENGLISH INSTRUCTOR) 10 mg disintegrating tablet Take 1 tablet (10 mg total) by mouth once as needed 3 Active ondansetron (ZOFRAN) 8 mg tablet Take 1 tablet (8 mg total) by mouth every 8 (eight) hours as needed for nausea or vomiting Active aspirin 81 mg enteric coated tablet TAKE ONE TABLET BY MOUTH EVERY MORNING 30 tablet 11 4 Active ascorbic acid (VITAMIN C) 500 mg tablet,chewable Take 1 tablet/chew tab (500 mg total) by mouth 2 (two) times a day 60 tablet/chew tab 5 Active cholecalciferol (Vitamin D3) 2000 unit tablet Take 1 tablet (2,000 Units total) by mouth daily 30 tablet 5 Active fezolinetant (Veozah) tablet tablet daily Active amLODIPine (NORVASC) 5 mg tabletIndications:p revention of 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 Take 1 tablet (5 mg total) by mouth daily May be taken in the evening 5 04/18/20 26 Active atorvastatin (LIPITOR) 40 mg tablet TAKE TWO TABLETS BY MOUTH DAILY 60 tablet 11 5 Active Active Problems Problem Noted Date Diagnosed Date Primary osteoarthritis of fi rst carpometacarpal joint of left hand 09/08/2024 Primary osteoarthritis of fi rst carpometacarpal joint of one hand, right 06/01/2024 De Quervain's tenosynovitis 06/01/2024 Arthritis of carpometacarpal (CMC) joint of both thumbs 03/01/2023 History of non-ST elevation myocardial infarctio n (NSTEMI) 12/31/2022 Trigger ring finger of right hand 10/17/2022 Cubital tunnel syndrome on right 10/17/2022 Carpal tunnel syndrome of right wrist 10/17/2022 Cavovarus deformity of foot, acquired, 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 Retained orthopedic hardware 09/12/2018 Surgical History Surgery Date Site/Laterality Comments KNEE ARTHROSCOPY Left Arthroscopy knee HYSTERECTOMY CARDIAC CATHETERIZATION no stents Medical History Medical History Date Comments PONV (postoperative nausea and vomiting) Asthma Symbicort PA (myocardial infarction) ([facility]) december 2022 Family History Medical History Relation Name Comments Heart disease Father Cadriel Relation Name Status Comments Father Cadriel (Age 61) Social History Tobacco Use Types Packs/Day Years Used Date Smoking Tobacco: Never Smokeless Tobacco: Never Tobacco Cessation:Counseling Given: Not Answered Alcohol Use Standard Drinks/Week Comments Yes 0 (1 standard drink = 0.6 oz pur e alcohol) AUDIT-C Answer Date Recorded Q1: How often do you have a drink containing alcohol? Never 10/10/2024 Q2: How many drinks containi ng alcohol do you have on a typical day when you are drinking? Patient does not drink Q3: How often do you have si x or more drinks on one occasion? Never 10/10/2024 Personal Safety Answer Date Recorded Have you ever been in or are you currently in a harmful physical or emotional relationship or is someone making you feel afraid or unsafe? Denies 09/26/2024 Comments No Sex and Gender Information Value Date Recorded Sex Assigned at Not on file Legal Sex Female 5:19 PM CONSTRUCTION SUPERVISOR/CARPENTER Gender Identity Not on file Sexual Orientation Not on file Last Filed Vital Signs Vital Sign Reading Time Taken Comments Blood Pressure 98/56 04/18/2025 2:46 PM CDT Pulse 79 04/18/2025 2:46 PM CDT Temperature 36.6 C (97.8 F) 09/26/2024 4:00 PM CONSTRUCTION SUPERVISOR/CARPENTER Respiratory Rate 18 10/10/2024 1:50 PM CDT Oxygen Saturation 97% 04/18/2025 2:46 PM CDT Inhaled Oxygen Concentration - - Weight 55.1 kg (121 lb 6.4 oz) 04/18/2025 2:46 P M CDT Height 160 cm (5' 3) 04/18/2025 2:46 PM CDT Body Mass Index 21.51 04/18/2025 2:46 PM CDT Plan of Treatment Health Maintenance Due Date Last Done Comments Breast Cancer Screening-Mammogram 1973 Colon Cancer Screening-Colonoscopy 1973 Depression Screening 1973 Hepatitis C Screening 1973 DTaP/Tdap/Td Vaccine (1 - Tdap) 1984 Hepatitis B Screening 1991 Regular Well Visit/Exam 18-64 1991 Pneumococcal vaccine <65 (1 of 2 - PCV) 1992 Zoster Vaccine (1 of 2) 2023 Covid-19 Vaccine (3 - 2024-2 6 season) 2025 09/28/2020, 09/28/2020, 09/07/2020, Additional history exists Influenza Vaccine (#1) 2025 05/12/2024 Medical Devices Implanted Type Area Adobe Block Maker Device Identifier Shelf Expiration Date Model / Serial / Lot [employer] Arthrex Dx Fibertak Needle [place] Suture Sterile Latex Free Ar-[id number] - [id number] Implanted:Qty: 1 on 06/09/2024 by Ayad Levy MD at [facility] Right: Wrist [employer] 08/02/2028 AR-8990ST / / [id number] [employer] Dx Swivelock Sl 3.5mm 8.5mm Fork Eyelet [place] Suture Sterile Ar-8978p - [id number] Implanted:Qty: 1 on 06/09/2024 by Ayad Levy MD at [facility] Right: Wrist [employer] 12/31/2028 AR-8978P / / [id number] [employer] Arthrex Dx Fibertak Needle [place] Suture Sterile Latex Free Ar-[id number] - [id number] Implanted:Qty: 1 on 09/26/2024 by Ayad Levy MD at [facility] Left: Wrist [employer] 09/02/2028 AR-8990ST / / [id number] [employer] Dx Swivelock Sl 3.5mm 8.5mm Fork Eyelet [place] Suture Sterile Ar-8978p - [id number] Implanted:Qty: 1 on 09/26/2024 by Ayad Levy MD at [facility] Left: Wrist [employer] 12/31/2028 AR-8978P / / [id number] Insurance [facility] [address] [facility] CMR Care Teams Veterans' Coordinator Relationship Specialty Start Date End Date Carlos aCm PA [address] [place] [address] PCP - General 06/19/15 Mayela Cohn NP [address] [place] [address] Nurse Practitioner Cardiovascular Disease 03/29/25
== END 2025-07-31 10:14 | disposition home or self-care (01) ==
LOC: CHSIMG 10:16
PROVIDERS: PCP Physician Assistant; Visit Provider Nurse Practitioner Women's Health
DX: N63.10 Unspecified lump in the right breast, unspecified quadrant (principal); N63.20 Unspecified lump in the left breast, unspecified quadrant
CPT/HCPCS: 77062; 77066; G0279